=== PATIENT | male | born 1935 | race Hispanic/Latino ===

== ENCOUNTER 2018-04-16 12:43 | Inpatient (IN) | payer MEDICARE, OTHER ==
--- NOTE | 2018-04-16 13:11 | ED PDOC ---
Arrival/HPI - General Chief Complaint: Weakness/Neurological Deficit Time Seen by Provider: 04/16/18 12:47 Historian: Patient, Family (sone) - History of Present Illness Narrative History of Present Illness (Text): 04/16/18 13:11 An 83 year old male, whose past medical history includes CABG, back surgery, right hip replacement, shoulder surgery, and atrial fibrillation on coumadin, presents to the emergency department, accompanied and translated by son, sent in by Dr. Gunter for evaluation of generalized weakness and difficulty ambulating progressive over the past 3 weeks. Patient reports right arm pain and chronic left knee pain (w out rash or increased warmth to knee). Patient's son reports patient had and fall yesterday where he felt lightheaded and fell on his head. Patient was transported to [facility] where he had a CT scan and chest xray that was negative and his ekg and blood test results were cleared. Patient was discharged but over night and earlier this morning, the patient family noted patient had difficulty ambulating and was overall significantly weak. Patient's son states Dr. Gunter made a house call and saw patient at home advising him to go to ER for further evaluation. Patient denies any fever, shortness of breath, chest pain, back pain, neck pain, headache, dizziness, or any other complaints. PMD: Patrick Carpio 04/16/18 15:10 Time/Duration: 24 hours (yesterday) Symptom Onset: Gradual Symptom Course: Unchanged Activities at Onset: Light Context: Home Past Medical History - Provider Review Nursing Documentation Reviewed: Yes - Cardiac Hx Hypertension: Yes - Psychiatric Hx Substance Use: No - Surgical History Hx Open Heart Surgery: Yes - Anesthesia Hx Anesthesia: Yes Hx Anesthesia Reactions: No Hx Malignant Hyperthermia: No Family/Social History - Physician Review Nursing Documentation Reviewed: Yes Family/Social History: No Known Family HX Smoking Status: Never Smoked Hx Alcohol Use: No Hx Substance Use: No Allergies/Home Meds Allergies/Adverse Reactions: Allergies No Known Allergies Allergy (Verified 04/16/18 20:18) Home Medications: Home Meds Medication Instructions Recorded Confirmed Acetaminophen with Codeine 1 tab PO Q8 PRN 04/16/18 04/16/18 [Tylenol with Codeine #3 Tablet] Atorvastatin [Lipitor] 40 mg PO DAILY 04/16/18 04/16/18 Furosemide [Lasix] 40 mg PO DAILY 04/16/18 04/16/18 Levothyroxine [Synthroid] 25 mcg PO DAILY 04/16/18 04/16/18 Lorazepam [Ativan] 1 mg PO BID 04/16/18 04/16/18 Losartan/Hydrochlorothiazide 1 tab PO DAILY 04/16/18 04/16/18 [Losartan-Hctz 100-25 mg Tab] Metoprolol Tartrate [Lopressor] 25 mg PO BID 04/16/18 04/16/18 NIFEdipine ER [Procardia XL] 90 mg PO DAILY 04/16/18 04/16/18 Omeprazole 40 mg PO DAILY 04/16/18 04/16/18 Warfarin [Coumadin] 4 mg PO DAILY 04/16/18 04/16/18 traMADol [Ultram] 50 mg PO Q6 PRN 04/16/18 04/16/18 Review of Systems - Physician Review All systems were reviewed & negative as marked: Yes - Review of Systems Constitutional: absent: Fevers Eyes: absent: Vision Changes ENT: absent: Hearing Changes Respiratory: absent: SOB Cardiovascular: absent: Chest Pain Gastrointestinal: absent: Abdominal Pain Musculoskeletal: Other (right arm pain and left knee pain). absent: Back Pain, Neck Pain Skin: absent: Rash Neurological: Other (generalized weakness, difficulty ambulating). absent: Headache, Dizziness Endocrine: absent: Diaphoresis Physical Exam Vital Signs Reviewed: Yes Vital Signs Temp Pulse Resp BP Pulse Ox 04/16/18 12:44 98.7 F 96 H 18 135/68 96 Temperature: Afebrile Blood Pressure: Normal Pulse: Regular Respiratory Rate: Normal Appearance: Positive for: Non-Toxic - Systems Exam Head: Present: Atraumatic, Normocephalic, Other (2 sutures to forehead, 2.5cm lac; bruising under right eye, no entrapment, vision fully intact. no septal he matoma) Pupils: Present: PERRL Extroacular Muscles: Present: EOMI Conjunctiva: Present: Normal Mouth: Present: Dry Respiratory/Chest: Present: Clear to Auscultation, Good Air Exchange. No: Respiratory Distress, Accessory Muscle Use Cardiovascular: Present: Normal S1, S2, Irregular Rhythm. No: Murmurs Abdomen: No: Tenderness, Distention, Peritoneal Signs Back: Present: Normal Inspection Upper Extremity: Present: Other (4 out of 5 strength of bilateral upper extremities) Lower Extremity: Present: Other (3 out of 5 strength of bilateral lower ex tremities) Neurological: Present: GCS=15, CN II-XII Intact, Speech Normal Skin: Present: Other (CABBG scar noted) Psychiatric: Present: Alert, Oriented x 3, Normal Insight, Normal Concentration Medical Decision Making ED Course and Treatment: 04/16/18 13:13 Impression: 83 year old male presenting to the emergency room sent in by Dr. Gunter for evaluation of generalized weakness and difficulty ambulating. Pt had a fall yesterday on coumadin and had a CTH and chest which were both unremarkable. Pt has had R arm pain prior to Fall, but full rom in all extremities, with all fully n/v intact. 3/5 strength b/l LE and 4/5 strength b/l UE. No snuffbox tenderness Plan: -- Type and screen -- Head CT without contrast -- EKG -- Labs -- CBC -- COAGs -- Chest X-ray -- X-ray of right elbow -- X-ray of right shoulder -- X-ray of right wrist -- Urinalysis -- Reassess and disposition Prior Visits: Notes and results from previous visits were reviewed. Progress Notes: 04/16/18 13:[address] Gunter who accepts patient's admission to his care. 04/16/18 14:36 Patient symptoms started 24 hours prior and patient is already on coumadin. No indication of code stroke at this time given diffuse weakness and no neurological or focal deficits. 04/16/18 14:49 Dr. Kat bedside, to follow up w/ pendings labs and imaging. To admit to his service. Pt in NAD, agreeable to plan - RAD Interpretation Narrative RAD Interpretations (Text): Procedure: CT HEAD WITHOUT CONTRAST. Dictator : Pj Chavez MD Impression: No acute intracranial hemorrhage. Prominent subarachnoid spaces in the frontoparietal regions possibly due to cortical volume loss however developing subdural hygromas cannot be excluded. There is any clinical concern, consider repeat CT scan in 12 hrs. \ Mild diffuse chronic white matter ischemic changes as above.. 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 Questionable of few tiny infarcts left basal ganglia. Note that the possibility of a small hyperacute infarct cannot excluded. Moderate central volume loss with disproportionate enlargement of the ventricles compared the sulci. There is also asymmetry of the lateral ventricles right larger than left,, part of which could is secondary to ex vacuo dilatation due to aforementioned basal ganglia shah radiata infarcts and probably some component of anatomic variation 04/16/18 16:23 Procedure: Chest X-ray Dictator: Pj Chavez MD Impression: Poor inspiration with low lung volumes, crowded bronchovascular markings and bibasilar atelectasis left greater than right.. 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 If symptoms persist or occult fracture suspected clinically consider repeat radiographs in 7-10 days as most fractures should become radiographically evident in this timeframe. Crayon Grader: Radiologist - EKG Interpretation EKG Interpretation (Text): 04/16/18 14:55 EKG: Ordered, reviewed, and independently interpreted the EKG. Rate : 85 BPM Rhythm : Atrial fibrillation Interpretation : No stemi. Interpreted by ED Physician: Yes - Scribe Statement The provider has reviewed the documentation as recorded by the Domitila Ramos All medical record entries made by the Lizzyibe were at my direction and personally dictated by me. I have reviewed the chart and agree that the record accurately reflects my personal performance of the history, physical exam, medical decision making, and the department course for this patient. I have also personally directed, reviewed, and agree with the discharge instructions and disposition. Disposition/Present on Arrival - Present on Arrival Any Indicators Present on Arrival: No History of DVT/PE: No History of Uncontrolled Diabetes: No Urinary Catheter: No History of Decub. Ulcer: No History Surgical Site Infection Following: None - Disposition Have Diagnosis and Disposition been Completed?: Yes Diagnosis: Weakness, Fall Disposition Time: 14:49 Condition: GOOD
[2018-04-16 13:44] LABS: BASO # 0.01 K/mm3 (0.0-2.0); BASO % 0.1 % (0.0-3.0); EOS % 0.1 % (1.5-5.0); HEMOGLOBIN 13.5 g/dL (14.0-18.0); LYMPH % 9.7 % (22.0-35.0); MEAN CELL VOLUME 89.1 fl (80.0-105.0); MEAN CORPUSCULAR HEMOGLOBIN 30.5 pg (25.0-35.0); MEAN CORPUSCULAR HGB CONC 34.3 g/dl (31.0-37.0); MEAN PLATELET VOLUME 9.8 fl (7.0-11.0); MONO # 1.3 (0.1-0.6); MONO % 13.1 % (1.0-6.0); RBC 4.42 10^6/uL (3.5-6.1); RED CELL DISTRIBUTION WIDTH 14.6 % (11.5-14.5); WHITE BLOOD COUNT 9.9 10^3/uL (4.5-11.0)
[2018-04-16 13:51] LABS: INR 3.5; PROTHROMBIN TIME 39.5 SECONDS (9.4-12.5)
[2018-04-16 14:03] LABS: TROPONIN I 0.03 ng/mL
[2018-04-16 14:25] LABS: ALB/GLOB RATIO 1.1 (1.1-1.8); ALBUMIN 3.9 g/dL (3.0-4.8); ALT/SGPT 11 U/L (7-56); AST/SGOT 28 U/L (17-59); BLOOD UREA NITROGEN 18 mg/dL (7-21); CALCIUM 9.2 mg/dL (8.4-10.5); GFR NON-AFRICAN AMERICAN > 60
--- NOTE | 2018-04-16 14:25 | CT ---
Date of service: 04/16/2018 PROCEDURE: CT HEAD WITHOUT CONTRAST. HISTORY: Status post fall yesterday on coumadin COMPARISON: None available.. TECHNIQUE: Axial computed tomography images were obtained through the head/brain without intravenous contrast. Radiation dose: Total exam DLP = 1125.03 mGy-cm. This CT exam was performed using one or more of the following dose reduction techniques: Automated exposure control, adjustment of the mA and/or kV according to patient size, and/or use of iterative reconstruction technique. FINDINGS: HEMORRHAGE: No acute parenchymal, subarachnoid nor extra-axial hemorrhage. BRAIN: There is mildly prominent bilateral frontal subarachnoid spaces part of which is likely due to cortical atrophy however possibility of developing subdural hygromas cannot be excluded. Clinical correlation recommended there is any clinical concern, consider followup the CT scan in 12 hr to assess for developing subdural hygromas. Mild diffuse and confluent chronic periventricular white matter ischemic changes seen extending peripherally into the deep and to a lesser degree subcortical white matter both cerebral hemispheres.. 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 Questionable of few tiny infarcts left basal ganglia. Note that the possibility of a small hyperacute infarct cannot excluded. Moderate central volume loss with disproportionate enlargement of the ventricles compared the sulci. There is also asymmetry of the lateral ventricles right larger than left,, part of which could is secondary to ex vacuo dilatation due to aforementioned basal ganglia shah radiata infarcts and probably some component of anatomic variation Mild vascular calcifications both carotid siphons. VENTRICLES: No obstructive however as mentioned above, there is asymmetric appearance of the lateral ventricles right larger than left. CALVARIUM: No acute calvarial fractures. Moderate right frontotemporal and parietal scalp contusion/soft tissue swelling extending from the supraorbital region to the vertex. Questionable small scalp lipoma left anterior frontoparietal region near vertex. PARANASAL SINUSES: Mild mucosal thickening seen within the ethmoid air complex extending superiorly into the frontal sinus. MASTOID AIR CELLS: Unremarkable as visualized. No inflammatory changes.. Cerumen is present within the right and to a much lesser degree left external auditory canals. OTHER FINDINGS: Changes of bilateral cataract surgery noted. IMPRESSION: No acute intracranial hemorrhage. Prominent subarachnoid spaces in the frontoparietal regions possibly due to cortical volume loss however developing subdural hygromas cannot be excluded. There is any clinical concern, consider repeat CT scan in 12 hrs. Mild diffuse chronic white matter ischemic changes as above.. 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 Questionable of few tiny infarcts left basal ganglia. Note that the possibility of a small hyperacute infarct cannot excluded. Moderate central volume loss with disproportionate enlargement of the ventricles compared the sulci. There is also asymmetry of the lateral ventricles right larger than left,, part of which could is secondary to ex vacuo dilatation due to aforementioned basal ganglia shah radiata infarcts and probably some component of anatomic variation
[2018-04-16] MEDS ORDERED: POLYETHYLENE GLYCOL 3350 17 GM/Dose PACKET PO STA (14:36)
--- NOTE | 2018-04-16 15:32 | RAD ---
Date of service: 04/16/2018 PROCEDURE: Radiographs of the Right Shoulder HISTORY: Right shoulder pain s/p fall COMPARISON: No prior. FINDINGS: BONES: Normal. No fracture. 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 SOFT TISSUES: Normal. OTHER FINDINGS: None. 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
--- NOTE | 2018-04-16 15:43 | RAD ---
Date of service: 04/16/2018 PROCEDURE: Right Wrist Radiographs. HISTORY: Right wrist pain s/p fall COMPARISON: None. FINDINGS: BONES: No definitive radiographic evidence of acute displaced fracture.. The osseous structures intact. JOINTS: No dislocation. SOFT TISSUES: Normal. OTHER FINDINGS: None. IMPRESSION: No evidence of acute displaced fracture nor dislocation. If symptoms persist or occult fracture suspected clinically consider repeat radiographs in 7-10 days as most fractures should become radiographically evident in this timeframe.
--- NOTE | 2018-04-16 15:45 | RAD ---
Date of service: 04/16/2018 HISTORY: weak COMPARISON: No prior. TECHNIQUE: Poor inspiration with FINDINGS: LUNGS: Poor inspiration with low lung volumes, crowded bronchovascular markings and bibasilar atelectasis left greater than right.. There may be a small calcified granuloma right lung apex overlying the right anterior 1st rib. PLEURA: No significant pleural effusion identified. No pneumothorax apparent. CARDIOVASCULAR: Heart appears enlarged.. Sternotomy wires and CABG clips again noted mild or aortic atherosclerotic calcification present. OSSEOUS STRUCTURES: No significant abnormalities. VISUALIZED UPPER ABDOMEN: Normal. OTHER FINDINGS: None. IMPRESSION: Poor inspiration with low lung volumes, crowded bronchovascular markings and bibasilar atelectasis left greater than right..
--- NOTE | 2018-04-16 16:25 | RAD ---
Date of service: 04/16/2018 PROCEDURE: Radiographs of the right elbow. HISTORY: fall COMPARISON: No prior. FINDINGS: This examination is limited due to patient positioning. BONES: No definitive radiographic evidence of acute displaced fracture nor dislocation. There appear to be heterotopic bone and possibly some enthesophyte changes. Mild dorsal soft tissue swelling. If symptoms persist or occult fracture suspected clinically recommend followup radiographs in 7-10 days as most fractures should radiographically evident in this timeframe. Alternately, consider followup CT scan which is much more sensitive. JOINTS: Mild degenerative osteoarthritis felt to present. No definitive evidence SOFT TISSUES: As above. JOINT EFFUSION: None. OTHER FINDINGS: None. IMPRESSION: No definitive radiographic evidence of acute displaced fracture nor dislocation. There appear to be heterotopic bone and possibly some enthesophyte changes. Mild dorsal soft tissue swelling. If symptoms persist or occult fracture suspected clinically recommend followup radiographs in 7-10 days as most fractures should radiographically evident in this timeframe. Alternately, consider followup CT scan which is much more sensitive.
[2018-04-16 17:59] LABS: PH,URINE 6.5 (4.7-8.0); URINE APPEARANCE CLEAR (CLEAR); URINE BILIRUBIN NEGATIVE (NEGATIVE); URINE BLOOD TRACE-INTACT (NEGATIVE); URINE COLOR YELLOW (YELLOW); URINE GLUCOSE (UA) NEGATIVE (NEGATIVE); URINE LEUKOCYTE ESTERASE NEGATIVE Leu/uL (NEGATIVE); URINE PROTEIN 30 mg/dL (<30 mg/dL)
[2018-04-16 18:05] LABS: URINE WBC 0 - 2 /hpf (0-6)
[2018-04-16 18:06] LABS: URINE AMORPHOUS SEDIMENT FEW /hpf; URINE BACTERIA MOD /hpf
--- NOTE | 2018-04-16 20:13 | CARD ---
APPROVED REPORT Date of service: 04/16/2018 EKG Measurement Heart [id number] <Conclusion> Atrial fibrillation with premature ventricular or aberrantly conducted complexes Low voltage QRS Nonspecific ST and T wave abnormality, probably digitalis effect Abnormal ECG
[2018-04-16 21:57] VITALS: BMI 31.9
[2018-04-16] MEDS ORDERED: Influenza Vaccine 60 mcg/0.5 mL SYR (4YR UP) IM ONE (21:57)
[2018-04-16] MEDS ORDERED: Pneumococcal 23-Valent Vaccine IM ONE (21:57)
[2018-04-17] MEDS ORDERED: [UNRECOGNIZED DRUG - OTHER] PO PRN (09:34)
[2018-04-17] MEDS ORDERED: Pantoprazole 40 mg EC Tab PO ONE (09:45)
[2018-04-17] MEDS ORDERED: Non Formulary Medication (Losartan/Hydrochlorothiazide [Losartan-Hctz 100-25 Mg Tab] 1 TAB PO SCH (10:00)
--- NOTE | 2018-04-17 12:13 | HP ---
HISTORY OF PRESENT ILLNESS: The patient is an 83-year-old male who was admitted with overall weakness. I had planned to see the patient in a house call. However, 2 days before the visit, the patient fell at home lacerating his right scalp. He was brought to the [facility] emergency room where two sutures were placed in the scalp. Apparently, CAT scan of the head was negative at that time and the patient was discharged to home. When seen in a house call, the patient was very weak. He was unable to get out of bed. He was unable to ambulate to the bathroom. He is cared for by his elderly , a son had arrived from [place] the day before to assist with caring for the patient. After my evaluation at the house call, I suggested hospitalization. John was called. The patient was brought to the emergency room and admitted. PAST MEDICAL HISTORY: Positive for hypertension, coronary artery disease, hypothyroidism, atrial fibrillation, osteoarthritis. The patient usually walks with a cane. SOCIAL HISTORY: He is a nonsmoker, never did smoke; nonalcoholic drinker. ALLERGIES: HAS NO KNOWN MEDICAL ALLERGIES. MEDICATIONS: At the time of admission medications include; Tylenol with Codeine as needed which is rarely used, Lipitor 40 mg once a day, Lasix 40 mg once a day, Synthroid 25 mcg once a day, Ativan 1 mg twice a day, losartan hydrochlorothiazide 100/25 every. day, metoprolol tartrate 25 mg twice a day, omeprazole 40 mg daily, warfarin 4 mg daily, tramadol 50 mg every 6 hours. The patient had been on the Procardia XL 90 mg. However, this had been discontinued approximately 1 month ago. PHYSICAL EXAMINATION: HEENT: The patient has a laceration of the right scalp on the frontoparietal area, two sutures are in place. There is ecchymoses and swelling in the area. The patient also has ecchymoses around the right orbit. NECK: Supple with no lymphadenopathy. No goiter. LUNGS: Clear to auscultation and percussion. HEART: Irregularly irregular. No murmurs are appreciated. ABDOMEN: Soft and nontender. EXTREMITIES: Free of cyanosis, clubbing, or edema. There is some tenderness in the right shoulder, more exquisite tenderness in the right elbow on palpation and on extension of the elbow. Also some tenderness in the right wrist on palpation. NEUROLOGIC: The patient is awake, alert, and oriented with no focal neurological signs. LABORATORY STUDIES: Revealed white blood cell count to be 9.8, hemoglobin and hematocrit are 13.5 and 39.4 respectively, platelet count is 197. His PT/INR is 3.5 which is slightly higher than we would like it to be. Sodium is 139, potassium 2.8, BUN is 18, creatinine 1.0, glucose is 134. Liver enzymes are normal. Troponin is 0.03. TSH is normal at 2.0. EKG showed atrial fibrillation with PVCs. Chest x-ray shows bilateral atelectasis. The x-ray of the right shoulder, elbow, and wrist are all negative for fracture. CAT scan of the head suggests a possible subdural hygroma in the frontoparietal area and followup is suggested within 12 hours. IMPRESSION AND PLAN: The patient is admitted with a diagnosis of generalized weakness, status post fall at home, head trauma, trauma to the right upper extremity, hypokalemia. The patient will be followed closely. Osorio Gunter MD MTDD
[2018-04-17] MEDS: Levothyroxine 25 MCG TAB PO SCH (12:23)
[2018-04-17] MEDS: Potassium Chloride 20 mEq ER Tab PO SCH ×2 (12:25→17:05)
--- NOTE | 2018-04-17 13:54 | PN ---
DATE: 04/17/2018 SUBJECTIVE: The patient is an 83-year-old male with a history of hypertension, coronary artery disease, hypothyroidism, atrial fibrillation, who was admitted yesterday with weakness after suffering a fall at home. Laceration of the forehead had been sutured at [facility]. When the patient was discharged from their emergency room, at home, he was still increasingly weak, unable to get out of bed and unable to complete his activities of daily living; therefore, he presented to the [facility] where he is admitted. When seen today, the patient seems to be in good spirits. He slept well last night. He voices no complaints. OBJECTIVE: His physical exam is essentially unchanged from admission. His blood pressure is 120/66 today, heart rate is 84 and he is afebrile. ASSESSMENT AND PLAN: We will continue to follow his prothrombin time, which was high normal on admission at 3.5 yesterday. We will ask for MRI of the head to be done to reevaluate a possible subdural hygroma in the frontoparietal region seen on yesterday's CAT scan. Potassium is to be replaced as it was low yesterday at 2.8. We will continue to follow the patient closely. Osorio Gunter MD
[2018-04-18 08:00] LABS: BASO # 0.01 K/mm3 (0.0-2.0); BASO % 0.1 % (0.0-3.0); HEMOGLOBIN 12.9 g/dL (14.0-18.0); LYMPH # 0.9 (1.2-3.4); LYMPH % 7.7 % (22.0-35.0); MEAN CORPUSCULAR HEMOGLOBIN 30.2 pg (25.0-35.0); MEAN CORPUSCULAR HGB CONC 33.9 g/dl (31.0-37.0); MEAN PLATELET VOLUME 10.1 fl (7.0-11.0); MONO # 1.6 (0.1-0.6); RBC 4.27 10^6/uL (3.5-6.1); RED CELL DISTRIBUTION WIDTH 14.4 % (11.5-14.5); WHITE BLOOD COUNT 11.3 10^3/uL (4.5-11.0)
[2018-04-18 08:40] LABS: FREE T4 1.45 ng/dL (0.78-2.19)
[2018-04-18 08:52] LABS: ALBUMIN 3.4 g/dL (3.0-4.8); ALT/SGPT 9 U/L (7-56); AST/SGOT 29 U/L (17-59); BLOOD UREA NITROGEN 15 mg/dL (7-21); CALCIUM 8.7 mg/dL (8.4-10.5); GFR NON-AFRICAN AMERICAN > 60
[2018-04-18] MEDS: Potassium Chloride 20 mEq ER Tab PO SCH ×2 (12:10→18:42)
[2018-04-18] MEDS: Levothyroxine 25 MCG TAB PO SCH (12:11)
[2018-04-18] MEDS: Pantoprazole 40 mg EC Tab PO SCH (12:12)
--- NOTE | 2018-04-18 12:19 | CT ---
Date of service: 04/18/2018 PROCEDURE: CT HEAD WITHOUT CONTRAST. HISTORY: Routine COMPARISON: Comparison made with the CT scan brain 04/16/2018. TECHNIQUE: Axial computed tomography images were obtained through the head/brain without intravenous contrast. Radiation dose: Total exam DLP = 935.24 mGy-cm. This CT exam was performed using one or more of the following dose reduction techniques: Automated exposure control, adjustment of the mA and/or kV according to patient size, and/or use of iterative reconstruction technique. FINDINGS: HEMORRHAGE: No intracranial hemorrhage. BRAIN: Persistent stable appearing mildly enlarged bilateral frontoparietal subarachnoid spaces likely due to cortical atrophic changes.. Mild diffuse and confluent chronic periventricular white matter ischemic changes seen extending peripherally into the deep and to a lesser degree subcortical white matter both cerebral hemispheres.. 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 Questionable of few tiny infarcts left basal ganglia. Note that the possibility of a small hyperacute infarct cannot excluded. Moderate central volume loss with disproportionate enlargement of the ventricles compared the sulci. There is also asymmetry of the lateral ventricles right larger than left,, part of which could is secondary to ex vacuo dilatation due to aforementioned basal ganglia shah radiata infarcts and probably some component of anatomic variation Mild vascular calcifications both carotid siphons. VENTRICLES: Unremarkable. No hydrocephalus. CALVARIUM: No acute calvarial fractures. Mild-moderate right supraorbital and mid frontal scalp contusional changes.. Questionable small right frontal scalp lipoma near vertex six PARANASAL SINUSES: Unremarkable as visualized. No significant inflammatory changes. MASTOID AIR CELLS: Unremarkable as visualized. No inflammatory changes. OTHER FINDINGS: Changes of bilateral cataract surgery again noted. IMPRESSION: Persistent stable appearing mildly enlarged bilateral frontoparietal subarachnoid spaces likely due to cortical atrophic changes.. Mild diffuse and confluent chronic periventricular white matter ischemic changes seen extending peripherally into the deep and to a lesser degree subcortical white matter both cerebral hemispheres.. 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 Questionable of few tiny infarcts left basal ganglia. Note that the possibility of a small hyperacute infarct cannot excluded. Moderate central volume loss with disproportionate enlargement of the ventricles compared the sulci. There is also asymmetry of the lateral ventricles right larger than left,, part of which could is secondary to ex vacuo dilatation due to aforementioned basal ganglia Mild moderate right supraorbital and frontal scalp contusional changes. The the
--- NOTE | 2018-04-18 13:14 | PN ---
DATE: 04/18/2018 DAILY PROGRESS NOTE SUBJECTIVE: The patient is an 83-year-old male who fell at home and suffered a laceration of the right forehead. This was treated and sutured in [facility] and the patient was discharged back to home. However, he was unable to get out of bed. He was weak. He was unable to complete any of activities of daily living when the patient was seen in a house call, I recommended hospitalization to which the patient, his and his son from [place] agreed. The patient is known to have a history of hypertension, coronary artery disease, hypothyroidism and atrial fibrillation. When seen today, the patient is lying in bed. He is awake, alert and oriented. He is feeling well. He did however complain of right knee pain that came on yesterday, was rather intense. PHYSICAL EXAMINATION GENERAL: On physical exam he is awake, alert and oriented. LUNGS: Clear. HEART: Regular. ABDOMEN: Soft and nontender. EXTREMITIES: There is tenderness on palpation over the right knee. There is a very mild abrasion on the knee, probably suffered in initial fall a few days ago. VITAL SIGNS: Blood pressure is 131/75, heart rate is 110 and he is afebrile. LABORATORY DATA: Morning laboratories reveal the white blood cells to be 11.3, hemoglobin and hematocrit are 12.9 and 38.0 with platelet count is 206. His potassium is depressed today at 2.7, blood urea nitrogen is 15, creatinine is 0.9. IMPRESSION AND PLAN: I will be asking Dr. Osorio Zuleta, the orthopedist to evaluate the patient's right knee. I will be getting x-rays of the knee and patella. On admission, the patient had a possible subdural hygroma developing in the parietofrontal area. It was suggested this be followup so the patient is waiting for an MRI without contrast to better evaluate this possible hygroma. We are holding the patient's Lasix because of his depressed potassium and potassium supplements have been ordered. The patient will be reevaluated in the morning. Osorio Gunter MD
--- NOTE | 2018-04-18 13:31 | RAD ---
Date of service: 04/18/2018 PROCEDURE: Right Knee Radiographs. HISTORY: Pain and swelling COMPARISON: None. FINDINGS: BONES: There is significant JOINTS: Significant medial joint space narrowing with endplate eburnation and prominent marginal osteophyte arising from the medial tibial plateau. Small marginal lateral osteophyte formation. Small posterior patellar osteophytes and small anterior superior patella enthesophyte. JOINT EFFUSION: Medium-sized suprapatellar joint effusion. OTHER FINDINGS: Metallic vascular clips seen in the medial soft tissues; rule out prior saphenous vein harvest. IMPRESSION: No acute fractures. 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 Medium size suprapatellar joint effusion.
[2018-04-18] MEDS ORDERED: Sodium Chloride 0.9% 500 ML IV STA (22:43)
--- NOTE | 2018-04-18 22:44 | CP.PCM.PN ---
Subjective - Date & Time of Evaluation Date of Evaluation: 04/18/18 Time of Evaluation: 22:30 - Subjective Subjective: Called to bedside to evaluate pt for fever. Pt currently admitted for generalized weakness, s/p fall at home, head trauma, trauma to R upper extremity. Observed resting comfortably with no acute complaints. Heart sounds normal s1/s2, no m/r/g. Lung sounds CTA b/l, no wheezes, rales, or rhonchi. Abd soft, NTND, BS normal x4. Sepsis work-up ordered. PMD Dr. uGnter notified. Pending CBC, CMP, procal, U/a, urine cx, blood cx, CXR, EKG, VBG. Given Tylenol x1. Will continue to follow overnight. Objective - Vital Signs/Intake and Output Vital Signs (last 24 hours): Temp Pulse Resp BP Pulse Ox 99.8 F H 87 20 114/54 L 94 L 04/18/18 18:56 04/18/18 18:42 04/18/18 14:00 04/18/18 18:42 04/18/18 14:00 Intake and Output: 04/18/18 04/19/18 18:59 06:59 Intake Total 480 Balance 480 - Medications Medications: Current Medications Acetaminophen (Tylenol 325mg Tab) 325 mg PO Q8H PRN PRN Reason: Pain, severe (8-10) Last Admin: 04/18/18 18:56 Dose: 325 mg Acetaminophen (Tylenol 325 Mg Supp) 325 mg RC STAT STA Stop: 04/18/18 22:42 Atorvastatin Calcium (Lipitor) 40 mg PO DAILY [facility] Last Admin: 04/18/18 12:19 Dose: 40 mg Codeine Sulfate (Codeine) 30 mg PO Q8H PRN PRN Reason: Pain, severe (8-10) Furosemide (Lasix) 40 mg PO DAILY [facility] Last Admin: 04/17/18 12:26 Dose: 40 mg Hydrochlorothiazide (Hydrodiuril) 25 mg PO DAILY [facility] Last Admin: 04/18/18 12:08 Dose: 25 mg Levothyroxine Sodium (Synthroid) 25 mcg PO DAILY [facility] Last Admin: 04/18/18 12:11 Dose: 25 mcg Lorazepam (Ativan) 1 mg PO BID [facility]; Protocol Last Admin: 04/18/18 18:41 Dose: 1 mg Losartan Potassium (Cozaar) 100 mg PO DAILY [facility] Last Admin: 04/18/18 14:59 Dose: 100 mg Metoprolol Tartrate (Lopressor) 25 mg PO BID [facility] Last Admin: 04/18/18 18:42 Dose: 25 mg Pantoprazole Sodium (Protonix Ec Tab) 40 mg PO ACB [facility] Last Admin: 04/18/18 12:12 Dose: 40 mg Potassium Chloride (K-Dur 20 Meq Er Tab) 20 meq PO BID [facility] Last Admin: 04/18/18 18:42 Dose: 20 meq Tramadol HCl (Ultram) 50 mg PO Q6 PRN PRN Reason: Pain, moderate (4-7) Last Admin: 04/18/18 18:42 Dose: 50 mg - Labs Labs: 04/18/18 07:15 04/18/18 07:15 PT 39.5 SECONDS (9.4-12.5) H 04/16/18 13:30 INR 3.50 04/16/18 13:30 APTT 43.8 Seconds (26.9-38.3) H 04/17/18 09:56
[2018-04-18 23:16] LABS: BASO # 0.01 K/mm3 (0.0-2.0); BASO % 0.1 % (0.0-3.0); EOS % 0.1 % (1.5-5.0); LYMPH # 1.3 (1.2-3.4); LYMPH % 10.9 % (22.0-35.0); MEAN CELL VOLUME 89.1 fl (80.0-105.0); MEAN CORPUSCULAR HEMOGLOBIN 30.2 pg (25.0-35.0); MEAN CORPUSCULAR HGB CONC 33.9 g/dl (31.0-37.0); MEAN PLATELET VOLUME 9.6 fl (7.0-11.0); MONO # 1.5 (0.1-0.6); MONO % 12.6 % (1.0-6.0); RBC 4.3 10^6/uL (3.5-6.1); RED CELL DISTRIBUTION WIDTH 14.4 % (11.5-14.5); WHITE BLOOD COUNT 11.5 10^3/uL (4.5-11.0)
[2018-04-18 23:17] LABS: VENOUS BLOOD GAS BASE EXCESS 6.6 mmol/L (0.0-2.0); VENOUS BLOOD GAS PO2 240 mm/Hg (30-55)
[2018-04-18 23:55] LABS: ALBUMIN 3.4 g/dL (3.0-4.8); ALT/SGPT 14 U/L (7-56); AST/SGOT 20 U/L (17-59); BLOOD UREA NITROGEN 18 mg/dL (7-21); CALCIUM 8.9 mg/dL (8.4-10.5); GFR NON-AFRICAN AMERICAN > 60
[2018-04-19] MEDS: Potassium Chloride 40 mEq/30 ml LIQ UD PO SCH ×2 (00:21→03:43)
[2018-04-19 08:27] LABS: ARTERIAL BLOOD GAS HCO3 28.4 mmol/L (21-28); ARTERIAL BLOOD GAS O2 SAT 97.5 % (95-98); ARTERIAL BLOOD GAS PCO2 39 mm/Hg (35-45); ARTERIAL BLOOD GAS PH 7.47 (7.35-7.45); ARTERIAL BLOOD GAS TCO2 29.6 mmol.L (22-28)
[2018-04-19 08:59] LABS: PH,URINE 6.5 (4.7-8.0); URINE BILIRUBIN NEGATIVE (NEGATIVE); URINE BLOOD SMALL (NEGATIVE); URINE GLUCOSE (UA) NEGATIVE (NEGATIVE); URINE LEUKOCYTE ESTERASE NEGATIVE Leu/uL (NEGATIVE); URINE PROTEIN 30 mg/dL (<30 mg/dL)
[2018-04-19 09:01] LABS: URINE APPEARANCE CLEAR (CLEAR); URINE COLOR YELLOW (YELLOW)
[2018-04-19 09:12] LABS: URINE BACTERIA SMALL /hpf; URINE WBC 0 - 2 /hpf (0-6)
[2018-04-19] MEDS: Pantoprazole 40 mg EC Tab PO SCH (09:31)
[2018-04-19] MEDS: Potassium Chloride 20 mEq ER Tab PO SCH ×2 (09:31→18:06)
[2018-04-19] MEDS: Levothyroxine 25 MCG TAB PO SCH (09:31)
--- NOTE | 2018-04-19 10:18 | RAD ---
Date of service: 04/18/2018 HISTORY: code sepsis COMPARISON: 04/16/2018 FINDINGS: LUNGS: There is a minimal infiltrate at the left lung base. This is most likely atelectasis. This is unchanged PLEURA: No significant pleural effusion identified, no pneumothorax apparent. CARDIOVASCULAR: Aortic calcification Mild cardiomegaly no pulmonary vascular congestion. OSSEOUS STRUCTURES: Sternal wires VISUALIZED UPPER ABDOMEN: Normal. OTHER FINDINGS: None. IMPRESSION: Minimal infiltrate at the left lung base. Probable atelectasis.
--- NOTE | 2018-04-19 19:00 | CON ---
DATE: 04/19/2018 ORTHOPEDIC REPORT HISTORY OF PRESENT ILLNESS: This is an 83-year-old male in room 567, bed 2. Dr. Gunter is his physician and admit him to the ER, 04/16/2018. I am seeing him today for the first time on 04/19/2018 with a mild complaint of right knee pain and swelling and left shoulder mild discomfort. X-rays of the knee showed osteoarthritis, knee has an effusion and the right shoulder has signs and changes of rotator cuff tear and I called the son at [phone] and he said that he has been seeing an orthopedic doctor out of town and he has some platelet rich factor in the left and right knee and knows about the shoulder problem. He does have sizing of his rotator cuff tear on the right and advanced osteoarthritis on the right knee with effusion, but he does not want me to do any injecting as he does have a private physician and I do not want to interfere with the treatment that is presently going on with the patient and the private orthopedic doctor. So, I will leave well enough alone, I will just write for physical therapy to ambulation with a walker and to maintain the strength that he has at the quadriceps and calves, so he does not fall when he does walk, but he has an appointment with his privateortho dr when he goes back to the orthopedic doctor out of town and I do not want to interfere with the current treatment plan that the other physician has for his knee arthritis and rotator cuff tear to the shoulder. Osorio Zuleta DO MTDD
[2018-04-20 07:19] LABS: BASO # 0.02 K/mm3 (0.0-2.0); BASO % 0.2 % (0.0-3.0); EOS # 0.1 (0.0-0.7); EOS % 1.2 % (1.5-5.0); HEMOGLOBIN 12.6 g/dL (14.0-18.0); LYMPH # 1.2 (1.2-3.4); LYMPH % 11.5 % (22.0-35.0); MEAN CELL VOLUME 89.6 fl (80.0-105.0); MEAN CORPUSCULAR HEMOGLOBIN 29.9 pg (25.0-35.0); MEAN CORPUSCULAR HGB CONC 33.3 g/dl (31.0-37.0); MEAN PLATELET VOLUME 10.4 fl (7.0-11.0); MONO % 9.5 % (1.0-6.0); RBC 4.22 10^6/uL (3.5-6.1); RED CELL DISTRIBUTION WIDTH 14.6 % (11.5-14.5); WHITE BLOOD COUNT 10.6 10^3/uL (4.5-11.0)
[2018-04-20 08:14] LABS: ALB/GLOB RATIO 0.9 (1.1-1.8); ALBUMIN 3.2 g/dL (3.0-4.8); ALT/SGPT 24 U/L (7-56); AST/SGOT 44 U/L (17-59); BLOOD UREA NITROGEN 17 mg/dL (7-21); CALCIUM 8.6 mg/dL (8.4-10.5); GFR NON-AFRICAN AMERICAN > 60
[2018-04-20] MEDS: Potassium Chloride 20 mEq ER Tab PO SCH ×2 (10:00→18:44)
--- NOTE | 2018-04-20 10:52 | PN ---
DATE: 04/19/2018 SUBJECTIVE: The patient is an 83-year-old male who was seen in a house call and found to be extremely weak, unable to ambulate from his bedroom to his bathroom, unable to complete his activities of daily living; therefore, was suggested presentation to the emergency room and hospitalization. The patient had fallen the day before my house call and had received two sutures to a laceration in the right frontoparietal region. [facility]; however, as mentioned above, was unable to ambulate. He is cared for by his elderly . His son from [place] had come up to visit and assist with the patient, however. The patient had complained of right elbow and shoulder pain. These were x-rayed along with the right wrist and they were negative for fracture. When seen today, the patient was also complaining of knee pain. Consultation from Dr. Osorio Zuleta was requested as well as x-rays of the knee. The x-ray showed significant osteoarthritis and osteophytes rising from the medial tibial plateau. There were some lateral osteophyte formations. There is a medium-sized supra patellar joint effusion. No fracture was noted. PHYSICAL EXAMINATION: VITAL SIGNS: Stable. His physical exam was unchanged. ASSESSMENT AND PLAN: We will begin physical therapy after evaluation from Dr. Zuleta. Osorio Gunter MD
[2018-04-20] MEDS: Levothyroxine 25 MCG TAB PO SCH (10:58)
[2018-04-20] MEDS: Pantoprazole 40 mg EC Tab PO SCH (10:58)
--- NOTE | 2018-04-20 23:09 | PN ---
DATE: 04/20/2018 The patient was seen this Thursday on room 567, bed 2, admitted with several falls at home and generalized weakness. He remains in bed with his niece and at the bedside. His son returned to [place]. The patient has generalized weak, was having difficulty getting out of bed for evaluation with physical therapist. He is scheduled for additional physical therapy. He will probably need some acute rehab. Unfortunately because of his insurance, he is not eligible for our Transitional Care Unit. I spoke with case management and social security benefits interviewer there looking at [facility] or other or other places, they tell me that they have been in touch with the patient's son and he is in agreement. I went back into the room to explain to the patient's and niece about the insurance dilemma they have and they unfortunately must abide. Patrick Gunter MD
[2018-04-21] MEDS: Pantoprazole 40 mg EC Tab PO SCH (07:39)
[2018-04-21 08:16] VITALS: RESP 20
[2018-04-21] MEDS: Potassium Chloride 20 mEq ER Tab PO SCH ×2 (10:35→18:28)
[2018-04-21] MEDS: Levothyroxine 25 MCG TAB PO SCH (10:40)
[2018-04-22 08:31] VITALS: PULSE 78; TEMP 97.4; O2SAT 100
[2018-04-22] MEDS: Pantoprazole 40 mg EC Tab PO SCH (09:37)
[2018-04-22] MEDS: Levothyroxine 25 MCG TAB PO SCH (09:38)
[2018-04-22] MEDS: Potassium Chloride 20 mEq ER Tab PO SCH (09:38)
[2018-04-22 09:49] VITALS: BP 135/80
--- NOTE | 2018-04-23 01:34 | DS ---
HISTORY OF PRESENT ILLNESS: This is an 83-year-old man with severe arthritis and limited mobility who is known to Dr. Osorio Sauer. He was seen by him and admitted on 04/16/2018 for multiple falls at home, generalized weakness, laceration on the scalp, large hematoma. After his initial visit to the emergency room at [facility], he was taken home with sutures in place, but has been having difficulty ambulating, could not go to the bathroom, clearly could not be cared for by his elderly and son who arrives from [place]. So, ambulance was called. He was taken to the emergency room, reevaluated for his overall weakness altered state, strength, and mentation, and admitted. His past history is significant for hypertension, coronary artery disease, hypothyroidism, atrial fibrillation, and osteoarthritis. He was admitted to medical floor. Blood cultures and urine cultures were negative. So, even though his initial white count is elevated at 11.3. His antibiotics which had begun empirically were run and then discontinued. Coumadin was held because his INR was 3.5 and we started just today. Electrolytes were monitored and adjusted for low potassium as low as 2.7, but now corrected to 3.5. Physical therapy was attempted, but it was difficult to get the patient up and moving. It was obvious that more therapy was needed. Unfortunately for insurance purposes, he was not a candidate for admission to our transitional care unit, and so arrangements were made for a subacute rehab facility elsewhere. The patient's and niece were at bedside on the following days after their son went back to [place] and the patient was ready for transfer today to subacute rehab facility. Sutures remained in place . It will be taken out as today was only day #6, and we estimate 10 to 14 days for those sutures to be in place. FINAL DISCHARGE DIAGNOSES: 1. Multiple falls at home. 2. Closed head trauma. 3. Coumadin coagulopathy. 4. Generalized weakness. 5. Osteoarthritis. 6. Hypertension. 7. Atrial fibrillation. Patrick Gunter MD
== END 2018-04-22 16:00 | DRG 565 ==
LOC: ED 12:43 → ERH 14:50 → 5RNO 20:48
PROVIDERS: ADMIT Internal Medicine; ATTEND Internal Medicine
DX: M25.461 Effusion, right knee (principal); M17.11 Unilateral primary osteoarthritis, right knee; J98.11 Atelectasis; R53.1 Weakness; G89.29 Other chronic pain; I10 Essential (primary) hypertension; I48.91 Unspecified atrial fibrillation; M75.101 Unspecified rotator cuff tear or rupture of right shoulder, not specified as traumatic; M79.601 Pain in right arm; I25.10 Atherosclerotic heart disease of native coronary artery without angina pectoris; E03.9 Hypothyroidism, unspecified; R29.6 Repeated falls; R79.1 Abnormal coagulation profile; Z79.01 Long term (current) use of anticoagulants; Z91.81 History of falling; Z79.899 Other long term (current) drug therapy; Z95.1 Presence of aortocoronary bypass graft; Z79.890 Hormone replacement therapy; Z96.641 Presence of right artificial hip joint

== ENCOUNTER 2018-06-10 13:04 | Inpatient (IN) | payer MEDICARE, OTHER ==
--- NOTE | 2018-06-10 14:20 | ED PDOC ---
Arrival/HPI - General Chief Complaint: Weakness/Neurological Deficit Time Seen by Provider: 06/10/18 13:46 Historian: Patient, EMS - History of Present Illness Narrative History of Present Illness (Text): 06/10/18 14:19 83 year old male, whose past medical history back surgery, right hip replacement, shoulder surgery, and atrial fibrillation on coumadin, presents to the ED via EMS for medical evaluation. As per EMS, daughter noticed patient experiencing "transient blank stares" prompting her to call 911. Upon arrival to the ED, patient is able to answer questions appropriately but slowly. Patient expresses right leg pain but denies any other somatic complaints. Patient denies any headache, chest pain, abdominal pain or any shortness of breath. 06/10/18 15:31 Time/Duration: Prior to Arrival Symptom Onset: Gradual Symptom Course: Unchanged Activities at Onset: Light Context: Home Past Medical History - Provider Review Nursing Documentation Reviewed: Yes - Cardiac Hx Hypertension: Yes - Pulmonary Hx Respiratory Disorders: No - Neurological Hx Neurological Disorder: Yes HX Cerebrovascular Accident: Yes Hx Dizziness: Yes - HEENT Hx HEENT Disorder: Yes Hx Cataracts: Yes - Renal Hx Renal Disorder: No - Endocrine/Metabolic Hx Endocrine Disorders: No - Hematological/Oncological Hx Blood Disorders: No - Integumentary Hx Dermatological Disorder: Yes Other/Comment: 04-16-18 LARGE HEMATOMA,BRUISING TO TOP OF HEAD WITH 2 STITCHES FROM FALL. BILATERAL BELOW EYE BRUISED AREA. - Musculoskeletal/Rheumatological Hx Musculoskeletal Disorders: Yes Hx Falls: Yes (04-15-18) Hx Unsteady Gait: Yes - Gastrointestinal Hx Gastrointestinal Disorders: Yes (INCONTINENT) - Genitourinary/Gynecological Hx Genitourinary Disorders: Yes Hx Incontinence: Yes - Psychiatric Hx Psychophysiologic Disorder: Yes Hx Anxiety: Yes Hx Substance Use: No - Surgical History Hx Open Heart Surgery: Yes - Anesthesia Hx Anesthesia: Yes Hx Anesthesia Reactions: No Hx Malignant Hyperthermia: No Family/Social History - Physician Review Nursing Documentation Reviewed: Yes Family/Social History: Unknown Family HX Smoking Status: Unknown If Ever Smoked Hx Alcohol Use: No Hx Substance Use: No Allergies/Home Meds Allergies/Adverse Reactions: Allergies No Known Allergies Allergy (Verified 04/16/18 20:18) Home Medications: Home Meds Medication Instructions Recorded Confirmed Acetaminophen with Codeine 1 tab PO Q8 PRN 04/16/18 04/16/18 [Tylenol with Codeine #3 Tablet] Atorvastatin [Lipitor] 40 mg PO DAILY 04/16/18 04/16/18 Furosemide [Lasix] 40 mg PO DAILY 04/16/18 04/16/18 Levothyroxine [Synthroid] 25 mcg PO DAILY 04/16/18 04/16/18 Lorazepam [Ativan] 1 mg PO BID 04/16/18 04/16/18 Losartan/Hydrochlorothiazide 1 tab PO DAILY 04/16/18 04/16/18 [Losartan-Hctz 100-25 mg Tab] Metoprolol Tartrate [Lopressor] 25 mg PO BID 04/16/18 04/16/18 NIFEdipine ER [Procardia XL] 90 mg PO DAILY 04/16/18 04/16/18 Omeprazole 40 mg PO DAILY 04/16/18 04/16/18 Warfarin [Coumadin] 4 mg PO DAILY 04/16/18 04/16/18 traMADol [Ultram] 50 mg PO Q6 PRN 04/16/18 04/16/18 Review of Systems - Physician Review All systems were reviewed & negative as marked: Yes - Review of Systems Constitutional: absent: Fevers Respiratory: absent: SOB, Cough Cardiovascular: absent: Chest Pain Gastrointestinal: absent: Abdominal Pain Musculoskeletal: Other (Right leg pain) Neurological: absent: Headache, Dizziness Physical Exam - Physical Exam Narrative Physical Exam (Text): 06/10/18 14:26 Gen: VS reviewed, alert, well developed, well nourished, nontoxic, mild distress. ENT: normal pharynx. Eye: EOMI, PERRL. Neck: no JVD, supple, no adenopathy. CV: regular rate, irregularly irregular rhythm, no rubs, no murmur, no gallops, S1, S2, pulses equal and strong. Pulm: no distress, clear to auscultation, no wheeze, no rhonchi, breath sounds equal, no rales. Abd: soft, nontender, no guarding, no rebound, no rigidity, normal bowel sounds. Ext: no edema. Skin: good color, no rash, no cyanosis. Psych: responds appropriately to questions, normal affect. Neuro: oriented x 2, CN2-12 intact grossly, motor intact, sensation intact. dysarthric, words difficult to comprehend. Responds appropriately to questions. Vital Signs Reviewed: Yes Vital Signs Temp Pulse Resp BP Pulse Ox 06/10/18 13:26 98.7 F 86 18 88/57 L 95 Temperature: Afebrile Blood Pressure: Hypotensive Pulse: Regular Respiratory Rate: Normal Appearance: Positive for: Well-Appearing, Non-Toxic, Comfortable Pain Distress: Mild Mental Status: Positive for: other (Alert) Medical Decision Making ED Course and Treatment: 06/10/18 14:14 Impression: 83 year old male presents to the ED for medical evaluation. Plan: -- CT head -- EKG -- Labs -- Chest X-ray -- Urinalysis -- Reassess and disposition Prior Visits: Notes and results from previous visits were reviewed. Progress Notes: 06/10/18 15:32 patient is alone, family not in the ED with the patient to corroborate history. there is no phone number on file to reach family member (number called and it is disconnected). I have discussed the case with dr. dejuan gunter and state that the patient was discharged from the hospital to go to rehab, was discharged home, was doing ok, they were scheduled for an upcoming home visit. they received a phone call from daughter in law calling the office stating that the patient has been intermittently staring into space. the timing of any events tod ay are entirely unclear and for that the patient is not a candidate for thrombolysis as there is no definable therapeutic window. 06/10/18 17:[address] gunter. patient to be admitted for altered mentation. will get cultures rule otu sepsis, hold abx for now as there is no clear potential infection source with pending UA.consult to dr. steve. ddx including but not limited to seizure, rule out sepsis, possible cva in light of atrial fibrillation and subtherapeutic INR. - RAD Interpretation Radiology Orders: 06/10/18 14:14 CHEST PORTABLE [RAD] Stat 06/10/18 14:16 HEAD W/O CONTRAST [CT] Stat - EKG Interpretation EKG Interpretation (Text): 06/10/18 17:15 ekg my read: atrial fibrillation at 83 bpm, nml qrs, nml axis, low voltage, nonspecific t wave abn Interpreted by ED Physician: Yes - Scribe Statement The provider has reviewed the documentation as recorded by the Scribe Brigid Garcia. All medical record entries made by the Domitila were at my direction and personally dictated by me. I have reviewed the chart and agree that the record accurately reflects my personal performance of the history, physical exam, medical decision making, and the department course for this patient. I have also personally directed, reviewed, and agree with the discharge instructions and disposition. Disposition/Present on Arrival - Present on Arrival Any Indicators Present on Arrival: No History of DVT/PE: No History of Uncontrolled Diabetes: No Urinary Catheter: No History of Decub. Ulcer: No History Surgical Site Infection Following: None - Disposition Have Diagnosis and Disposition been Completed?: Yes Diagnosis: Altered mental state Disposition: HOSPITALIZED Disposition Time: 17:15 Patient Plan: Admission Patient Problems: Current Active Problems Problem Status Onset Altered mental state Acute Condition: GUARDED Referrals: Osorio Gunter MD [Primary Care Provider] - Follow up with primary Forms: [employer] [facility] (Slovak)
--- NOTE | 2018-06-10 14:54 | RAD ---
Date of service: 06/10/2018 HISTORY: chest pain COMPARISON: No prior. TECHNIQUE: 1 view obtained. FINDINGS: LUNGS: No active pulmonary disease. PLEURA: No significant pleural effusion identified, no pneumothorax apparent. CARDIOVASCULAR: No aortic atherosclerotic calcification present. Normal cardiac size. No congestive change. Sternotomy wires noted. OSSEOUS STRUCTURES: No significant abnormalities. VISUALIZED UPPER ABDOMEN: Normal. OTHER FINDINGS: None. IMPRESSION: No active disease.
[2018-06-10 15:28] LABS: BASO # 0.03 K/mm3 (0.0-2.0); BASO % 0.3 % (0.0-3.0); EOS # 0.3 (0.0-0.7); HEMOGLOBIN 12.9 g/dL (14.0-18.0); MEAN CELL VOLUME 90.5 fl (80.0-105.0); MEAN CORPUSCULAR HEMOGLOBIN 29.9 pg (25.0-35.0); MEAN CORPUSCULAR HGB CONC 33.1 g/dl (31.0-37.0); MEAN PLATELET VOLUME 9.5 fl (7.0-11.0); MONO # 0.9 (0.1-0.6); MONO % 9.6 % (1.0-6.0); RBC 4.31 10^6/uL (3.5-6.1); RED CELL DISTRIBUTION WIDTH 15.3 % (11.5-14.5); WHITE BLOOD COUNT 9.6 10^3/uL (4.5-11.0)
[2018-06-10] MEDS ORDERED: Sodium Chloride 0.9% 1,000 ML IV STA (15:36)
[2018-06-10 15:39] LABS: INR 1.49; PROTHROMBIN TIME 16.5 SECONDS (9.4-12.5)
[2018-06-10 15:40] LABS: ALB/GLOB RATIO 0.9 (1.1-1.8); ALBUMIN 3.1 g/dL (3.0-4.8); ALT/SGPT 14 U/L (7-56); AST/SGOT 18 U/L (17-59); BLOOD UREA NITROGEN 31 mg/dL (7-21); CALCIUM 8.8 mg/dL (8.4-10.5); GFR NON-AFRICAN AMERICAN > 60
--- NOTE | 2018-06-10 15:50 | CT ---
Date of service: 06/10/2018 PROCEDURE: CT HEAD WITHOUT CONTRAST. HISTORY: altered mentation COMPARISON: None available. TECHNIQUE: Axial computed tomography images were obtained through the head/brain without intravenous contrast. Radiation dose: Total exam DLP = 1063.77 mGy-cm. This CT exam was performed using one or more of the following dose reduction techniques: Automated exposure control, adjustment of the mA and/or kV according to patient size, and/or use of iterative reconstruction technique. FINDINGS: HEMORRHAGE: No intracranial hemorrhage. BRAIN: No mass effect or edema. Chronic microvascular changes in the basal ganglia and deep white matter. VENTRICLES: Unremarkable. No hydrocephalus. CALVARIUM: Unremarkable. PARANASAL SINUSES: Unremarkable as visualized. No significant inflammatory changes. MASTOID AIR CELLS: Unremarkable as visualized. No inflammatory changes. OTHER FINDINGS: None. IMPRESSION: No acute findings
[2018-06-10 15:52] LABS: TROPONIN I < 0.01 ng/mL
[2018-06-10 19:06] LABS: URINE APPEARANCE CLOUDY (CLEAR); URINE BILIRUBIN NEGATIVE (NEGATIVE); URINE BLOOD TRACE-INTACT (NEGATIVE); URINE COLOR YELLOW (YELLOW); URINE GLUCOSE (UA) NEGATIVE (NEGATIVE); URINE LEUKOCYTE ESTERASE LARGE Leu/uL (NEGATIVE); URINE PROTEIN TRACE mg/dL (<30 mg/dL); URINE UROBILINOGEN 0.2 E.U./dL (<1 E.U./dL)
[2018-06-10 19:14] LABS: URINE BACTERIA LARGE /hpf; URINE WBC TNTC /hpf (0-6)
[2018-06-10 19:25] LABS: BARBITURATES, UR NEGATIVE (NEGATIVE); BENZODIAZEPINES, UR POSITIVE (NEGATIVE); OPIATES, UR NEGATIVE (NEGATIVE); PHENCYCLIDINE, UR NEGATIVE (NEGATIVE)
[2018-06-10] MEDS ORDERED: cefTRIAXone 1 gm 1 GM/100 ML BAG IVPB STA (19:57)
[2018-06-11 00:24] VITALS: BMI 27.8
[2018-06-11] MEDS ORDERED: Metoprolol 1 mg/ml Inj IVP ONE (08:48)
--- NOTE | 2018-06-11 08:51 | CARD ---
APPROVED REPORT Date of service: 06/10/2018 EKG Measurement Heart [id number] <Conclusion> Atrial fibrillation Moderate Rate. Non Specific ST-T Changes.
[2018-06-11] MEDS ORDERED: Metoprolol 1 mg/ml Inj ONE (08:54)
[2018-06-11] MEDS ORDERED: Non Formulary Medication (Losartan/Hydrochlorothiazide [Losartan-Hctz 100-25 Mg Tab] 1 TAB PO SCH (10:00)
[2018-06-11] MEDS: Tmp-Smz 800 mg-160 mg DS Tab PO SCH ×2 (11:04→17:45)
[2018-06-11] MEDS: Levothyroxine 25 MCG TAB PO SCH (11:04)
[2018-06-11] MEDS: Pantoprazole 40 mg EC Tab PO SCH (11:05)
[2018-06-11] MEDS: NIFEdipine 90 mg ER Tab PO SCH (11:15)
[2018-06-11 11:28] LABS: INR 1.82; PROTHROMBIN TIME 20.6 SECONDS (9.4-12.5)
--- NOTE | 2018-06-11 15:16 | PN ---
DATE: 06/11/2018 SUBJECTIVE: The patient is an 83-year-old male with a history of multiple falls at home, osteoarthritis, hypertension, atrial fibrillation and coronary artery disease who was admitted to the [facility] on 06/10/2018 with altered mental status and urinary tract infection. When seen today, the patient is awake, alert, he recognized me, however, as per the nurse caring for the patient, he had been confused in the past. Easily falling asleep and not being aware of his surroundings. With me he did carry on a discussion in [place] he was able to describe how he was feeling and that his chief complaint was pain in the right knee. Review of the chart shows in April, during his last hospitalization with inability to walk, X-ray of the right knee showed try compartment degenerative osteoarthritis with a suprapatellar effusion. I will ask Dr. Zuleta, who saw him last hospitalization to reevaluate the patient and consider a possible injection to the knee for pain relief. Physical exam is otherwise unremarkable. We are awaiting culture results from his culture and sensitivity results for his urinary tract infection. 'I have empirically started the patient on Bactrim DS 1 tablet twice a day. Osorio Gunter MD MTDBandar
--- NOTE | 2018-06-11 15:52 | CP.PCM.PCO ---
Physician Communication Note - Physician Communication Note Physician Communication Note: mild delirium. avoid hypotensive episodes.Iv fluids/monitor electrolytes.
--- NOTE | 2018-06-11 21:08 | CON ---
DATE: 06/11/2018 HISTORY OF PRESENT ILLNESS: An 83-year-old male with a past medical history of right hip replacement, atrial fibrillation, on Coumadin and the patient was experiencing blank stares and brought him to hospital for further workup and the patient will follows simple command, but confused. PAST MEDICAL HISTORY: Hypertension, atrial fibrillation, dizziness, and CVA. ALLERGIES: NO KNOWN DRUG ALLERGY. HOME MEDICATIONS: The patient is on Synthroid, Lipitor, Lasix, hydrochlorothiazide, omeprazole, , and tramadol. REVIEW OF SYSTEMS: The patient confused and headache and dizziness. PHYSICAL EXAMINATION: VITAL SIGNS: Blood pressure 88/57. HEENT: Normocephalic and atraumatic. NEUROLOGICAL: Cranial nerves II through XII are tested. Pupils reactive. EOM intact. Visual field full. No facial asymmetry. Tongue midline. Motor examination; spontaneous movement of the extremities noted. IMPRESSION AND PLAN: The patient was recently discharged and now admitted with altered mental status and CAT scan of the head was negative and workup in progress. Continue present management. We will follow up. Forrest Carroll MD
--- NOTE | 2018-06-11 21:28 | HP ---
DATE OF EXAM: 06/11/2018 HISTORY OF PRESENT ILLNESS: The patient is an 83-year-old male who was brought to the emergency room with complaint of altered mental status, dysuria and frequency on urination. The patient was hospitalized in 04/2018 after a fall at home and inability to ambulate. He was at a subacute care facility, returned home approximately 10 days ago and did well for several days. As per the patient, he developed pain in his right knee, could no longer ambulate and since his elderly could no longer care for him, he presented to the emergency room, was evaluated and admitted. PAST MEDICAL HISTORY: The patient is known to have a past medical history positive for multiple falls at home, the last of which in April he has suffered a laceration of his scalp. He has a history of weakness, osteoarthritis, hypertension, atrial fibrillation and coronary artery disease. SOCIAL HISTORY: He never smoked, is a nonalcoholic drinker. ALLERGIES: HE HAS NO KNOWN MEDICAL ALLERGIES. MEDICATIONS: At the time of admission, his medications included Tylenol with Codeine #3 every 8 hours as needed, Lipitor 40 mg a day, Lasix 40 mg a day, Synthroid 25 mcg daily, Ativan 1 mg twice a day p.r.n., losartan/hydrochlorothiazide 100/25 mg daily, metoprolol tartrate 25 mg twice a day, nifedipine XL 90 mg once a day, omeprazole 40 mg once a day, warfarin 4 mg daily and tramadol 50 mg every 6 hours as needed for pain. REVIEW OF SYSTEMS: Otherwise unremarkable. PHYSICAL EXAMINATION VITAL SIGNS: His blood pressure is 132/67, his heart rate is 81 beats per minute and he is a febrile. HEAD, EYES, EARS, NOSE AND THROAT: Unremarkable. NECK: Supple with no lymphadenopathy. No goiter. LUNGS: Clear to auscultation and percussion. HEART: Regular. No murmurs, gallops or rubs. ABDOMEN: Soft and nontender with no organomegaly. GENITALIA: Normal for age and sex. EXTREMITIES: Free of cyanosis, clubbing or edema. NEUROLOGIC: The patient is mildly confused; however, he does answer questions appropriately. LABORATORY DATA: Shows the white blood cell count to be 9.6, hemoglobin and hematocrit are 12.9 and 39.0 respectively, platelet count is 219. Sodium is 137, potassium is 3.8, blood urea nitrogen 31, creatinine 1.1, nonfasting glucose is 64. PT/INR is low therapeutic at 1.49. A urinalysis is positive for urinary tract infection containing leukocyte esterase and white blood cells are too numerous to count. IMPRESSION AND PLAN: So the patient is to be admitted with altered mental status and urinary tract infection and the patient is to be reevaluated in the morning. Osorio Gunter MD
--- NOTE | 2018-06-11 21:36 | CON ---
DATE: 06/11/2018 LOCATION: The patient is in room 263, bed 1. REASON FOR CONSULTATION: Atrial fibrillation and hypertension. HISTORY OF PRESENT ILLNESS: An 83-year-old male known case of atrial fibrillation, possible coronary artery disease, hypertension, hypothyroidism, osteoarthritis, admitted with altered mental status since last few days. The patient at times is confused. Denies any chest pain, respiratory distress, or palpitation. The patient at this moment is lying flat in bed without any apparent respiratory distress. PAST MEDICAL HISTORY: Positive for atrial fibrillation, hypertension, possible coronary artery disease, hypothyroidism, and osteoarthritis. PERSONAL HISTORY: No history of smoking or drinking. ALLERGIES: NO KNOWN ALLERGIES. HOME MEDICATIONS: Included Ultram 50 mg every 6 hours p.r.n., Coumadin 4 mg daily, omeprazole 40 mg daily, Procardia XL 90 mg daily, metoprolol tartrate 25 mg b.i.d., losartan and hydrochlorothiazide 100/25 mg one tablet daily, Ativan 1 mg b.i.d., Synthroid 25 mcg daily, furosemide 40 mg daily, Lipitor 40 mg daily, acetaminophen with codeine, and Tylenol With Codeine No. 3 tablet p.o. every 8 hours p.r.n. REVIEW OF SYSTEMS: All the systems reviewed, the patient walks with a cane and he also has a tendency to fall down at home. Otherwise, other systems was mentioned in the history. PHYSICAL EXAMINATION: VITAL SIGNS: Blood pressure 94/58, respirations 20, pulse 97, and temperature 99. HEENT: Head is normocephalic. Eyes; pupils normal. Conjunctivae normal. NECK: JVP low. Carotids equal. THORAX: AP diameter normal. LUNGS: Clear. CARDIOVASCULAR: S1 and S2. Soft systolic murmur. No rubs. ABDOMEN: Soft and nontender. No organomegaly. Bowel sounds are normal. EXTREMITIES: No clubbing. No cyanosis. LABORATORY DATA: WBC 9.6, hemoglobin 12.9, hematocrit 39, and platelets 219. Sodium 137, potassium 3.8, BUN 31, and creatinine 1.1. Total bilirubin, AST, and ALT normal. Total protein and albumin normal. Chest x-ray, no active disease. EKG shows atrial fibrillation moderate rate, nonspecific ST-T changes. Monitor time, the patient's heart rate goes to 120 to 130 per minute, initially on admission heart rate was moderate. DIAGNOSES: Atrial fibrillation, at times the patient goes into rapid rate; altered mental status; hypertension; osteoarthritis; hypothyroidism; and possible coronary artery disease. The patient's prothrombin time today is 20.6 with INR 1.82. PLAN: The patient is getting warfarin 4 mg p.o. daily, losartan 100 mg daily, hydrochlorothiazide 25 mg daily, furosemide 40 mg p.o. daily, atorvastatin 40 mg daily, metoprolol 25 mg b.i.d., nifedipine ER, Procardia XL 90 mg p.o. daily, Protonix 40 mg daily, ceftriaxone 1 g IV was given once, levothyroxine 25 mcg daily, and the patient received 5 mg IV Lopressor this morning because of rapid heart rate. I gave Cardizem 10 mg IV bolus stat and then started his Lopressor 25 mg b.i.d. I will monitor the heart rate. We will check TSH in the morning. I will check prothrombin time in the morning and we will also do an echocardiogram and we will follow with you. Izzy Lowery MD
[2018-06-12 07:06] LABS: BASO # 0.03 K/mm3 (0.0-2.0); BASO % 0.2 % (0.0-3.0); EOS # 0.3 (0.0-0.7); EOS % 2.4 % (1.5-5.0); HEMOGLOBIN 12.4 g/dL (14.0-18.0); LYMPH # 1.4 (1.2-3.4); LYMPH % 11.2 % (22.0-35.0); MEAN CELL VOLUME 90.8 fl (80.0-105.0); MEAN CORPUSCULAR HEMOGLOBIN 29.3 pg (25.0-35.0); MEAN CORPUSCULAR HGB CONC 32.3 g/dl (31.0-37.0); MEAN PLATELET VOLUME 9.7 fl (7.0-11.0); MONO # 1.1 (0.1-0.6); RBC 4.23 10^6/uL (3.5-6.1); RED CELL DISTRIBUTION WIDTH 15.6 % (11.5-14.5); WHITE BLOOD COUNT 12.3 10^3/uL (4.5-11.0)
[2018-06-12 07:13] LABS: ALB/GLOB RATIO 0.9 (1.1-1.8); ALBUMIN 2.8 g/dL (3.0-4.8); ALT/SGPT 13 U/L (7-56); AST/SGOT 22 U/L (17-59); BLOOD UREA NITROGEN 27 mg/dL (7-21); CALCIUM 8.7 mg/dL (8.4-10.5); GFR NON-AFRICAN AMERICAN 58; INR 2.45; PROTHROMBIN TIME 27.7 SECONDS (9.4-12.5)
[2018-06-12] MEDS: Tmp-Smz 800 mg-160 mg DS Tab PO SCH ×2 (09:22→17:43)
[2018-06-12] MEDS: NIFEdipine 90 mg ER Tab PO SCH (09:24)
[2018-06-12] MEDS: Levothyroxine 25 MCG TAB PO SCH (09:24)
[2018-06-12] MEDS: Pantoprazole 40 mg EC Tab PO SCH (09:24)
--- NOTE | 2018-06-12 15:23 | CARD ---
APPROVED REPORT Date of service: 06/12/2018 EXAM: Two-dimensional and M-mode echocardiogram with Doppler and color Doppler. INDICATION Atrial Fibrillation Hypertension/HCVD 2D DIMENSIONS Left Atrium (2D)4.4 (1.6-4.0cm)IVSd1.8 (0.7-1.1cm) LVDd4.0 (3.9-5.9cm)PWd1.3 (0.7-1.1cm) LVDs2.9 (2.5-4.0cm)FS (%) 26.5 % LVEF (%)52.4 (>50%) M-Mode DIMENSIONS Aortic Root3.50 (2.2-3.7cm)Aortic Cusp Exc.1.30 (1.5-2.0cm) Aortic Valve AoV Peak Wmyhwyvk324.0cm/Anabel Peak GR.12mmHgLVOT Peak Zkkysjpl029.0cm/s LVOT VTI21.90cm Mitral Valve E/A ratio0.0 TDI E/Lateral E'0.0E/Medial E'0.0 Tricuspid Valve TR Peak [id number]/sRAP [id number] Peak Gr.21mmHg [id number] LEFT VENTRICLE The left ventricle is normal size. There is mild to moderate concentric left ventricular hypertrophy. The left ventricular function is normal. The left ventricular ejection fraction is within the normal range. There is normal LV segmental wall motion. No left ventricle thrombus noted on this study. RIGHT VENTRICLE The right ventricle is normal size. There is normal right ventricular wall thickness. The right ventricular systolic function is normal. ATRIA The left atrium is mildly dilated. The right atrium size is normal. AORTIC VALVE The aortic valve is severely thickened. There is moderate aortic regurgitation. There is no aortic valvular stenosis. MITRAL VALVE The mitral valve is mildly thickened. There is no mitral valve regurgitation noted. There is no mitral valve stenosis. TRICUSPID VALVE The tricuspid valve is normal in structure. There is mild tricuspid regurgitation. There is no tricuspid valve stenosis. PULMONIC VALVE The pulmonary valve is normal in structure. There is no pulmonic valvular regurgitation. GREAT VESSELS The aortic root is normal in size. The IVC is normal in size and collapses >50% with inspiration. <Conclusion> The left ventricle is normal size. There is mild to moderate concentric left ventricular hypertrophy. The left ventricular function is normal. The left ventricular ejection fraction is within the normal range. There is normal LV segmental wall motion. There is moderate aortic regurgitation. There is mild tricuspid regurgitation.
[2018-06-13] MEDS ORDERED: Bupivacaine 0.5% Inj(30mL) IJ ONE (08:31)
[2018-06-13] MEDS ORDERED: MethylPREDNISolone Depo 40 mg/ml Inj IM ONE (08:31)
[2018-06-13] MEDS: Levothyroxine 25 MCG TAB PO SCH (10:35)
[2018-06-13] MEDS: Pantoprazole 40 mg EC Tab PO SCH (10:35)
[2018-06-13] MEDS: Tmp-Smz 800 mg-160 mg DS Tab PO SCH ×2 (10:39→18:58)
[2018-06-13] MEDS: NIFEdipine 90 mg ER Tab PO SCH (10:39)
--- NOTE | 2018-06-13 11:41 | CON ---
DATE: 06/13/2018 ORTHOPEDIC CONSULT LOCATION: The patient room 263, bed 1. He could be seen by me by Dr. Sauer, for right and left knee pain. X-rays of the right knee, which were done on 04/18/2018, show extensive osteoarthritis of the medial joint line with varus knee, has some mild flexion deformity of 5 degrees and to flexed to 110 and he lives with his . He is a poor candidate for total knee replacement, because he seems he does does not understand the need for physical therapy after major procedure of a total knee replacement the risks may be worse then the arthritis, I will treat him symptomatically with Depo-Medrol and Marcaine injections. He has no fluid in the knee. He has complains of right knee pain and he would like to go to therapy as I did talk to the daughter and he is not a surgical candidate for knee replacement, but we would consider something better Depo-Medrol in future, which is the new flexor for this patient. There is a one shot a week for three injections that would help his pain more than cortisone that I gave today and he is not candidate for the sophisticated stem cell replacement, it is not available because of the [employer] insurance has not paid for that, so we will see how he does with this Depo Medrol, Marcaine injection and I could see him in the outpatient if the family would like to tr the euflexor injections if they want to consider at later and I am going to order an x-ray of his left knee, because he does have some pain _on the left knee so once that left knee x-rays suddenly we could give a Depo- Medrol injection in the left knee because he does have pain in both knees. FINAL DIAGNOSES: Osteoarthritis both knees right worse than the left. Hopefully, I could take care of this with Depo-Medrol injections. Osorio Zuleta DO [facility]
--- NOTE | 2018-06-13 12:48 | RAD ---
Date of service: 06/13/2018 PROCEDURE: Right Knee Radiographs. HISTORY: pain COMPARISON: None. TECHNIQUE: 2 views obtained. FINDINGS: BONES: Normal. No fracture. JOINTS: There is severe joint space narrowing in the medial compartment JOINT EFFUSION: None. OTHER FINDINGS: None. IMPRESSION: No evidence of fracture. Severe joint space narrowing in the medial compartment
--- NOTE | 2018-06-14 07:32 | CP.PCM.PN ---
Subjective - Date & Time of Evaluation Date of Evaluation: 06/14/18 Time of Evaluation: 06:05 - Subjective Subjective: Awake, alert, no distress Reason for consultation and follow up: Cardiac evaluation of atrial fibrillation and hypertension, history of chronic atrial fibrillation, on Coumadin, hypertension, hypothyroidism, admitted for altered mental status. Seen and examined by me and Dr. Lowery Objective - Vital Signs/Intake and Output Vital Signs (last 24 hours): Temp Pulse Resp BP Pulse Ox 98.6 F 83 20 132/79 94 L 06/14/18 05:57 06/14/18 05:58 06/14/18 05:57 06/14/18 05:57 06/14/18 05:57 Intake and Output: 06/14/18 06/14/18 06:59 18:59 Intake Total 1860 Output Total 150 Balance 1710 - Medications Medications: Current Medications Atorvastatin Calcium (Lipitor) 40 mg PO DAILY [facility] Last Admin: 06/13/18 10:31 Dose: 40 mg Furosemide (Lasix) 40 mg PO DAILY [facility] Last Admin: 06/13/18 10:31 Dose: 40 mg Hydrochlorothiazide (Hydrodiuril) 25 mg PO DAILY [facility] Last Admin: 06/13/18 10:31 Dose: 25 mg Levothyroxine Sodium (Synthroid) 25 mcg PO DAILY [facility] Last Admin: 06/13/18 10:35 Dose: 25 mcg Lorazepam (Ativan) 1 mg PO BID [facility]; Protocol Last Admin: 06/13/18 18:58 Dose: 1 mg Losartan Potassium (Cozaar) 100 mg PO DAILY [facility] Last Admin: 06/13/18 10:35 Dose: 100 mg Metoprolol Tartrate (Lopressor) 25 mg PO BID [facility] Last Admin: 06/13/18 18:59 Dose: 25 mg Nifedipine (Procardia Xl) 90 mg PO DAILY [facility] Last Admin: 06/13/18 10:39 Dose: 90 mg Pantoprazole Sodium (Protonix Ec Tab) 40 mg PO DAILY [facility] Last Admin: 06/13/18 10:35 Dose: 40 mg Trimethoprim/Sulfamethoxazole (Bactrim Ds Tab) 1 tab PO BID [facility]; Protocol Last Admin: 06/13/18 18:58 Dose: 1 tab Warfarin Sodium (Coumadin) 4 mg PO DAILY [facility] Last Admin: 06/13/18 10:39 Dose: 4 mg - Labs Labs: 06/12/18 06:00 06/12/18 06:00 PT 27.7 SECONDS (9.4-12.5) H 06/12/18 06:00 INR 2.45 06/12/18 06:00 APTT 30.0 Seconds (26.9-38.3) 06/10/18 14:40 - Constitutional Appears: Non-toxic, No Acute Distress - Head Exam Head Exam: NORMAL INSPECTION, NORMOCEPHALIC - Eye Exam Eye Exam: Normal appearance Pupil Exam: NORMAL ACCOMODATION - ENT Exam ENT Exam: Mucous Membranes Moist - Respiratory Exam Respiratory Exam: Decreased Breath Sounds, Clear to Ausculation Bilateral, NORMAL BREATHING PATTERN - Cardiovascular Exam Cardiovascular Exam: Irregular Rhythm, +S1, +S2 Additional comments: telemetry atrial fibrillation - GI/Abdominal Exam GI & Abdominal Exam: Soft, Normal Bowel Sounds - Extremities Exam Extremities Exam: Full ROM, Normal Capillary Refill - Neurological Exam Neurological Exam: Alert, Awake - Skin Skin Exam: Dry, Normal Color, Warm Assessment and Plan - Assessment and Plan (Free Text) Assessment: An 83 year old male who came in to the ER due to altered mental status. History of chronic atrial fibrillation, on coumadin, hypertension, hypothyroidism,osteoarthritis, falls,CVA, incontinence. Urine culture positive for Klebsiella Pneumonia. Had episode of rapid atrial fibrillation and Cardizem IV bolus. Heart rate controlled. Orthopaedics on consult for knee pain due to osteoarthritis. Cardiac status stable. INR therapeutic. Echo done and showed LVEF 52%, moderate aortic regurgitation, mild tricuspid regurgitation. Plan: No distress, awake, confuse at times Heart rate controlled Blood pressure controlled Cardiac status stable INR therapeutic On Lipitor 40 mg daily, Lasix 40 mg daily,Hydrodiuril 25 mg daily, Synthroid 25 mcg daily,Cozaar 100 mg daily, Procardia XL 90 mg daily Warfarin Sodium 4 mg daily Continue current management Will follow up Plan and treatment discussed with Dr. Lowery
[2018-06-14] MEDS: NIFEdipine 90 mg ER Tab PO SCH (11:27)
[2018-06-14] MEDS: Levothyroxine 25 MCG TAB PO SCH (11:29)
[2018-06-14] MEDS: Pantoprazole 40 mg EC Tab PO SCH (11:29)
[2018-06-14] MEDS: Tmp-Smz 800 mg-160 mg DS Tab PO SCH (11:33)
[2018-06-14] MEDS ORDERED: guaiFENesin DM 100 mg-10 mg/5 ml UD PO PRN (11:53)
--- NOTE | 2018-06-15 06:53 | CP.PCM.PN ---
Subjective - Date & Time of Evaluation Date of Evaluation: 06/15/18 Time of Evaluation: 06:05 - Subjective Subjective: Awake, alert, no distress, lying in bed Reason for consultation and follow up: Cardiac evaluation of atrial fibrillation and hypertension, history of chronic atrial fibrillation, on Coumadin, hypertension, hypothyroidism, admitted for altered mental status. Seen and examined by me and Dr. Lowery Objective - Vital Signs/Intake and Output Vital Signs (last 24 hours): Temp Pulse Resp BP Pulse Ox 97.4 F L 82 20 125/80 97 06/15/18 06:00 06/15/18 06:00 06/15/18 06:00 06/15/18 06:00 06/15/18 06:00 Intake and Output: 06/14/18 06/15/18 18:59 06:59 Intake Total 540 180 Balance 540 180 - Medications Medications: Current Medications Atorvastatin Calcium (Lipitor) 40 mg PO DAILY [facility] Last Admin: 06/14/18 11:27 Dose: 40 mg Furosemide (Lasix) 40 mg PO DAILY [facility] Last Admin: 06/14/18 11:30 Dose: 40 mg Guaifenesin/Dextromethorphan (Robitussin Dm) 5 ml PO Q4H PRN PRN Reason: Cough Hydrochlorothiazide (Hydrodiuril) 25 mg PO DAILY [facility] Last Admin: 06/14/18 11:28 Dose: 25 mg Levothyroxine Sodium (Synthroid) 25 mcg PO DAILY [facility] Last Admin: 06/14/18 11:29 Dose: 25 mcg Lorazepam (Ativan) 1 mg PO BID [facility]; Protocol Last Admin: 06/14/18 18:33 Dose: 1 mg Losartan Potassium (Cozaar) 100 mg PO DAILY [facility] Last Admin: 06/14/18 11:28 Dose: 100 mg Metoprolol Tartrate (Lopressor) 25 mg PO BID [facility] Last Admin: 06/14/18 18:33 Dose: 25 mg Nifedipine (Procardia Xl) 90 mg PO DAILY [facility] Last Admin: 06/14/18 11:27 Dose: 90 mg Pantoprazole Sodium (Protonix Ec Tab) 40 mg PO DAILY [facility] Last Admin: 06/14/18 11:29 Dose: 40 mg Warfarin Sodium (Coumadin) 4 mg PO DAILY [facility] Last Admin: 06/14/18 11:28 Dose: 4 mg - Labs Labs: 06/12/18 06:00 06/12/18 06:00 PT 27.7 SECONDS (9.4-12.5) H 06/12/18 06:00 INR 2.45 06/12/18 06:00 APTT 30.0 Seconds (26.9-38.3) 06/10/18 14:40 - Constitutional Appears: Non-toxic, No Acute Distress - Head Exam Head Exam: NORMAL INSPECTION, NORMOCEPHALIC - Eye Exam Eye Exam: Normal appearance Pupil Exam: NORMAL ACCOMODATION - ENT Exam ENT Exam: Mucous Membranes Moist - Neck Exam Neck Exam: Full ROM - Respiratory Exam Respiratory Exam: Decreased Breath Sounds, Clear to Ausculation Bilateral, NORMAL BREATHING PATTERN - Cardiovascular Exam Cardiovascular Exam: Irregular Rhythm, +S1, +S2 Additional comments: atrial fibrillation 70-80's - GI/Abdominal Exam GI & Abdominal Exam: Soft, Normal Bowel Sounds - Extremities Exam Extremities Exam: Full ROM - Neurological Exam Neurological Exam: Alert, Awake Additional comments: confuse at times - Psychiatric Exam Psychiatric exam: Normal Affect, Normal Mood - Skin Skin Exam: Dry, Normal Color, Warm Assessment and Plan - Assessment and Plan (Free Text) Assessment: An 83 year old male who came in to the ER due to altered mental status. History of chronic atrial fibrillation, on coumadin, hypertension, hypothyroidism,oste oarthritis, falls,CVA, incontinence. Urine culture positive for Klebsiella Pneumonia. Had episode of rapid atrial fibrillation and Cardizem IV bolus. Orthopaedics on consult for knee pain due to osteoarthritis. Cardiac status stable. Echo done and showed LVEF 52%, moderate aortic regurgitation, mild tricuspid regurgitation. Controlled atrial fibrillation. INR therapeutic on Coumadin. Will discontinue telemetry. Discharge planning. Plan: No distress, awake Heart rate controlled, Atrial fibrillation controlled rate Blood pressure controlled Cardiac status stable INR therapeutic, on Coumadin Will discontinue telemetry On Lipitor 40 mg daily, Lasix 40 mg daily,Hydrodiuril 25 mg daily, Synthroid 25 mcg daily,Cozaar 100 mg daily, Procardia XL 90 mg daily Warfarin Sodium 4 mg daily Continue current management Continue current medications Discharge planning Will follow up Plan and treatment discussed with Dr. Lowery
[2018-06-15] MEDS: Levothyroxine 25 MCG TAB PO SCH (10:03)
[2018-06-15] MEDS: NIFEdipine 90 mg ER Tab PO SCH (10:03)
[2018-06-15] MEDS: Pantoprazole 40 mg EC Tab PO SCH (10:03)
--- NOTE | 2018-06-15 11:13 | PN ---
DATE: 06/15/2018 ROOM: 263, bed 1. I injected his right knee for osteoarthritis, the medial side on 06/13/2018, he feels much better, not cured but at least it helped some of his symptoms of pain and synovitis. I am going to order an x-ray of his left knee as it was not done yet to see what that looks like because he did have arthritis on that too. Eventually, he is going to need Euflexxa that I can give as an outpatient and this will be longer lasting than the cortisone injection, but that has to be done in the office after I get approval from the insurance company. I told the family to give me a call me, we could work it out in the office and it will be one injection a week for three injections. I will follow with the patient at these, get left knee x-rayed now. Osorio Zuleta DO
--- NOTE | 2018-06-15 13:13 | RAD ---
Date of service: 06/15/2018 PROCEDURE: Left Knee Radiographs. HISTORY: Pain. COMPARISON: None. TECHNIQUE: 2 views obtained. FINDINGS: BONES: Normal. No fracture. JOINTS: Tricompartmental osteoarthritis most pronounced in the medial compartment. No articular erosion. JOINT EFFUSION: None. OTHER FINDINGS: None. IMPRESSION: Tricompartmental osteoarthritis.
[2018-06-15] MEDS: cefTRIAXone 1 gm 1 GM/100 ML BAG IVPB SCH (22:28)
--- NOTE | 2018-06-16 01:44 | PN ---
DATE: 06/15/2018 LOCATION: Room 373, bed 2. SUBJECTIVE: He was transferred from telemetry after his telemetry unit was discontinued. He is quite awake, alert and clear. In fact, when I came into the room he was on the phone talking to his son. I spoke to his son at length regarding his father's condition. Mental status is dramatically improved. Urinary tract infection is treated. He is on antibiotics, responding nicely. PHYSICAL EXAMINATION: HEENT: Head and neck unremarkable. LUNGS: Showed good aeration, right and left. HEART: Regular. Non-tachycardiac. ABDOMEN: Soft. EXTREMITIES: Show no edema. IMPRESSION: Urinary tract infection. PLAN: We will ask ID to see the patient and approve p.o. Cipro for urinary tract infection with sensitivities to Cipro. We will also ask to repeat UA and C and S. I spoke with the patient's son about discharge planing. I believe we were initially planning to go to transitional care unit, but his insurance, the [employer], does not allow for that, so the option would be either subacute rehab facility in network or home. The patient lives in a two-family home, his [id number] lives down stairs. Her , the patient's son, just a few weeks ago. So, she is terribly distraught and would need additional help from visiting nurse, social secretary and other family members. We will talk to ID and all parties involved tomorrow and plan to discharge soon. Patrick Gunter MD [facility]
[2018-06-16 06:42] LABS: PROTHROMBIN TIME 39.8 SECONDS (9.4-12.5)
[2018-06-16 06:43] LABS: BASO # 0.05 K/mm3 (0.0-2.0); BASO % 0.5 % (0.0-3.0); EOS # 0.5 (0.0-0.7); EOS % 4.5 % (1.5-5.0); HEMOGLOBIN 14.8 g/dL (14.0-18.0); LYMPH # 2.2 (1.2-3.4); LYMPH % 21.1 % (22.0-35.0); MEAN CELL VOLUME 89.9 fl (80.0-105.0); MEAN CORPUSCULAR HEMOGLOBIN 29.4 pg (25.0-35.0); MEAN CORPUSCULAR HGB CONC 32.7 g/dl (31.0-37.0); MEAN PLATELET VOLUME 9.6 fl (7.0-11.0); MONO # 1.1 (0.1-0.6); MONO % 10.4 % (1.0-6.0); PLATELET COUNT 252 10^3/uL (120.0-450.0); RBC 5.04 10^6/uL (3.5-6.1); RED CELL DISTRIBUTION WIDTH 15.4 % (11.5-14.5); WHITE BLOOD COUNT 10.5 10^3/uL (4.5-11.0)
[2018-06-16 06:48] LABS: BLOOD UREA NITROGEN 31 mg/dL (7-21); CALCIUM 9.2 mg/dL (8.4-10.5); GFR NON-AFRICAN AMERICAN > 60
--- NOTE | 2018-06-16 06:52 | CP.PCM.PN ---
Subjective - Date & Time of Evaluation Date of Evaluation: 06/16/18 Time of Evaluation: 06:45 - Subjective Subjective: Awake, alert, no distress, feels okay Reason for consultation and follow up: Cardiac evaluation of atrial fibrillation and hypertension, history of chronic atrial fibrillation, on Coumadin, hypertension, hypothyroidism, admitted for altered mental status. Seen and examined by me and Dr. Lowery Objective - Vital Signs/Intake and Output Vital Signs (last 24 hours): Temp Pulse Resp BP Pulse Ox 98.4 F 82 20 99/60 L 97 06/15/18 18:51 06/15/18 18:51 06/15/18 18:51 06/15/18 18:51 06/15/18 18:51 Intake and Output: 06/15/18 06/16/18 18:59 06:59 Intake Total 540 0 Output Total 100 1 Balance 440 -1 - Medications Medications: Current Medications Atorvastatin Calcium (Lipitor) 40 mg PO DAILY [facility] Last Admin: 06/15/18 10:02 Dose: 40 mg Furosemide (Lasix) 40 mg PO DAILY [facility] Last Admin: 06/15/18 10:02 Dose: 40 mg Guaifenesin/Dextromethorphan (Robitussin Dm) 5 ml PO Q4H PRN PRN Reason: Cough Hydrochlorothiazide (Hydrodiuril) 25 mg PO DAILY [facility] Last Admin: 06/15/18 10:02 Dose: 25 mg Ceftriaxone Sodium (Rocephin 1 Gram Ivpb) 1 gm in 100 mls @ 100 mls/hr IVPB DAILY [facility]; Protocol Stop: 06/22/18 20:17 Last Admin: 06/15/18 22:28 Dose: 100 mls/hr Levothyroxine Sodium (Synthroid) 25 mcg PO DAILY [facility] Last Admin: 06/15/18 10:03 Dose: 25 mcg Lorazepam (Ativan) 1 mg PO BID [facility]; Protocol Last Admin: 06/15/18 17:19 Dose: 1 mg Losartan Potassium (Cozaar) 100 mg PO DAILY [facility] Last Admin: 06/15/18 10:03 Dose: 100 mg Metoprolol Tartrate (Lopressor) 25 mg PO BID [facility] Last Admin: 06/15/18 17:19 Dose: 25 mg Nifedipine (Procardia Xl) 90 mg PO DAILY [facility] Last Admin: 06/15/18 10:03 Dose: 90 mg Pantoprazole Sodium (Protonix Ec Tab) 40 mg PO DAILY [facility] Last Admin: 06/15/18 10:03 Dose: 40 mg Warfarin Sodium (Coumadin) 4 mg PO DAILY [facility] Last Admin: 06/15/18 10:03 Dose: 4 mg - Labs Labs: 06/12/18 06:00 06/16/18 05:01 PT 39.8 SECONDS (9.4-12.5) H 06/16/18 05:01 INR 2.45 06/12/18 06:00 APTT 30.0 Seconds (26.9-38.3) 06/10/18 14:40 - Constitutional Appears: Non-toxic, No Acute Distress - Head Exam Head Exam: NORMAL INSPECTION, NORMOCEPHALIC - Eye Exam Eye Exam: Normal appearance Pupil Exam: NORMAL ACCOMODATION - ENT Exam ENT Exam: Mucous Membranes Moist, Normal Exam - Respiratory Exam Respiratory Exam: Decreased Breath Sounds, NORMAL BREATHING PATTERN - Cardiovascular Exam Cardiovascular Exam: +S1, +S2 - GI/Abdominal Exam GI & Abdominal Exam: Soft, Normal Bowel Sounds - Extremities Exam Extremities Exam: Full ROM - Neurological Exam Neurological Exam: Alert, Awake - Psychiatric Exam Psychiatric exam: Normal Affect, Normal Mood - Skin Skin Exam: Dry, Normal Color, Warm Assessment and Plan - Assessment and Plan (Free Text) Assessment: An 83 year old male who came in to the ER due to altered mental status. History of chronic atrial fibrillation, on coumadin, hypertension, hypothyroidism,osteoarthritis, falls,CVA, incontinence. Urine culture positive for Klebsiella Pneumonia. Had episode of rapid atrial fibrillation and Cardizem IV bolus. Orthopaedics on consult for knee pain due to osteoarthritis. Cardiac status stable. Echo done and showed LVEF 52%, moderate aortic regurgitation, mild tricuspid regurgitation. Controlled atrial fibrillation. INR therapeutic on Coumadin. Continue IV antibiotics per ID.Steroid injection on right knee done by Dr. Zuleta. Left knee X ray showed tricompartmental osteoarthritis, possible injection in doctors office. Cardiac status stable. Discharge planning. Plan: Feels okay, No distress, awake Heart rate controlled Blood pressure controlled Cardiac status stable INR 3.52 today , Hold Coumadin today, INR level in am On Lipitor 40 mg daily, Lasix 40 mg daily,Hydrodiuril 25 mg daily, Synthroid 25 mcg daily,Cozaar 100 mg daily, Procardia XL 90 mg daily Warfarin Sodium 4 mg daily Continue current management Continue current medications Continue IV antibiotics per iD for UTI Followed up by Ortho for knee pain Discharge planning Will follow up Plan and treatment discussed with Dr. Lowery
[2018-06-16 06:57] LABS: INR 3.52
[2018-06-16] MEDS ORDERED: MethylPREDNISolone Depo 40 mg/ml Inj IM ONE (08:03)
[2018-06-16] MEDS ORDERED: Bupivacaine 0.5% Inj(30mL) IJ ONE (08:03)
[2018-06-16] MEDS: cefTRIAXone 1 gm 1 GM/100 ML BAG IVPB SCH (09:11)
[2018-06-16] MEDS: NIFEdipine 90 mg ER Tab PO SCH (09:12)
[2018-06-16] MEDS: Pantoprazole 40 mg EC Tab PO SCH (09:12)
[2018-06-16] MEDS: Levothyroxine 25 MCG TAB PO SCH (09:12)
--- NOTE | 2018-06-16 10:19 | CP.PCM.CON ---
<Rajesh Daniel - Last Filed: 06/16/18 10:15> History of Present Illness - History of Present Illness History of Present Illness: Rajesh Daniel D.O. PGY-3, Internal Medicine Resident, Infectious Disease Consultation Note 83-year-old male with a past medical history of hypertension, CAD, OA, and atrial fibrillation who originally presented for altered mental status as well as dysuria and frequency in urination. Infectious disease consultation was requested. Patient was seen and examined at bedside. Patient appears comfortable. Patient states that his urinary symptoms have slowly improved. Patient does seem slightly confused at times but there is a slight issue with language. Patient states that he has been eating well and sleeping well without any complaints. Right now he mostly complains of bilateral knee discomfort from his arthritis. Patient denies any fevers or chills at this time. Patient denies any nausea, vomiting, diarrhea, constipation. Review of Systems - Review of Systems All systems: reviewed and no additional remarkable complaints except (as per HPI) Past Patient History - Past Social History Smoking Status: Unknown If Ever Smoked - CARDIAC Hx Cardiac Disorders: Yes (CAD, AFIB) Hx Hypertension: Yes - PULMONARY Hx Respiratory Disorders: No - NEUROLOGICAL HX Cerebrovascular Accident: Yes - HEENT Hx HEENT Problems: Yes Hx Cataracts: Yes - RENAL Hx Chronic Kidney Disease: No - ENDOCRINE/METABOLIC Hx Endocrine Disorders: No - HEMATOLOGICAL/ONCOLOGICAL Hx Blood Disorders: No - INTEGUMENTARY Hx Dermatological Problems: Yes - MUSCULOSKELETAL/RHEUMATOLOGICAL Hx Arthritis: Yes - GASTROINTESTINAL Hx Gastrointestinal Disorders: Yes (INCONTINENT) - GENITOURINARY/GYNECOLOGICAL Hx Genitourinary Disorders: Yes Hx Incontinence: Yes - PSYCHIATRIC Hx Psychophysiologic Disorder: Yes Hx Anxiety: Yes Hx Substance Use: No - SURGICAL HISTORY Hx Open Heart Surgery: Yes Other/Comment: shoulder ,back surgery,rt hip replacement - ANESTHESIA Hx Anesthesia: Yes Hx Anesthesia Reactions: No Hx Malignant Hyperthermia: No Meds Allergies/Adverse Reactions: Allergies Allergy/AdvReac Type Severity Reaction Status Date / Time No Known Allergies Allergy Verified 04/16/18 20:18 - Medications Medications: Current Medications Atorvastatin Calcium (Lipitor) 40 mg PO DAILY [facility] Last Admin: 06/16/18 09:12 Dose: 40 mg Furosemide (Lasix) 40 mg PO DAILY [facility] Last Admin: 06/16/18 09:12 Dose: 40 mg Guaifenesin/Dextromethorphan (Robitussin Dm) 5 ml PO Q4H PRN PRN Reason: Cough Hydrochlorothiazide (Hydrodiuril) 25 mg PO DAILY [facility] Last Admin: 06/16/18 09:12 Dose: 25 mg Ceftriaxone Sodium (Rocephin 1 Gram Ivpb) 1 gm in 100 mls @ 100 mls/hr IVPB DAILY [facility]; Protocol Stop: 06/22/18 20:17 Last Admin: 06/16/18 09:11 Dose: 100 mls/hr Levothyroxine Sodium (Synthroid) 25 mcg PO DAILY [facility] Last Admin: 06/16/18 09:12 Dose: 25 mcg Lorazepam (Ativan) 1 mg PO BID [facility]; Protocol Last Admin: 06/16/18 09:12 Dose: 1 mg Losartan Potassium (Cozaar) 100 mg PO DAILY [facility] Last Admin: 06/16/18 09:14 Dose: 100 mg Metoprolol Tartrate (Lopressor) 25 mg PO BID [facility] Last Admin: 06/16/18 09:12 Dose: 25 mg Nifedipine (Procardia Xl) 90 mg PO DAILY [facility] Last Admin: 06/16/18 09:12 Dose: 90 mg Pantoprazole Sodium (Protonix Ec Tab) 40 mg PO DAILY [facility] Last Admin: 06/16/18 09:12 Dose: 40 mg Warfarin Sodium (Coumadin) 4 mg PO DAILY [facility] Last Admin: 06/15/18 10:03 Dose: 4 mg Physical Exam - Constitutional Appears: Non-toxic, No Acute Distress - Eye Exam Eye Exam: EOMI. absent: Scleral icterus - ENT Exam ENT Exam: Mucous Membranes Moist, Normal Oropharynx - Neck Exam Neck exam: Positive for: Normal Inspection - Respiratory Exam Respiratory Exam: Clear to Auscultation Bilateral. absent: Rales, Rhonchi, Wheezes - Cardiovascular Exam Cardiovascular Exam: Irregular Rhythm, +S1, +S2. absent: RRR - GI/Abdominal Exam GI & Abdominal Exam: Normal Bowel Sounds, Soft. absent: Tenderness - Extremities Exam Extremities exam: Negative for: calf tenderness, pedal edema Additional comments: osteoarthritic knee changes - Neurological Exam Neurological exam: Alert - Skin Skin Exam: Dry, Warm Results - Vital Signs Recent Vital Signs: Last Vital Signs Temp 97.8 F 06/16/18 07:58 Pulse 82 06/16/18 07:58 Resp 20 06/16/18 07:58 BP 156/72 H 06/16/18 09:12 Pulse Ox 92 L 06/16/18 07:58 - Labs Result Diagrams: 06/16/18 05:01 06/16/18 05:01 Labs: Laboratory Results - last 24 hr 06/16/18 06/16/18 06/16/18 05:01 05:01 05:01 WBC 10.5 RBC 5.04 Hgb 14.8 D Hct 45.3 MCV 89.9 MCH 29.4 MCHC 32.7 RDW 15.4 H Plt Count 252 MPV 9.6 Neut % (Auto) 63.5 Lymph % (Auto) 21.1 L Posey % (Auto) 10.4 H Eos % (Auto) 4.5 Baso % (Auto) 0.5 Lymph # (Auto) 2.2 Posey # (Auto) 1.1 H Eos # (Auto) 0.5 Baso # (Auto) 0.05 Absolute Neuts (auto) 6.70 H PT 39.8 H INR 3.52 H* Sodium Potassium Chloride Carbon Dioxide Anion Gap BUN Creatinine Est GFR ( Amer) Est GFR (Non-Af Amer) Random Glucose Calcium Prostate Specific Ag 11.3 H 06/16/18 05:01 WBC RBC Hgb Hct MCV MCH MCHC RDW Plt Count MPV Neut % (Auto) Lymph % (Auto) Posey % (Auto) Eos % (Auto) Baso % (Auto) Lymph # (Auto) Posey # (Auto) Eos # (Auto) Baso # (Auto) Absolute Neuts (auto) PT INR Sodium 136 Potassium 3.5 L Chloride 101 Carbon Dioxide 26 Anion Gap 13 BUN 31 H Creatinine 1.1 Est GFR ( Amer) > 60 Est GFR (Non-Af Amer) > 60 Random Glucose 112 H Calcium 9.2 Prostate Specific Ag Assessment & Plan - Assessment and Plan (Free Text) Assessment: 83-year-old male with a past medical history of hypertension, CAD, OA, and atrial fibrillation who originally presented for altered mental status as well as dysuria and frequency in urination. Infectious disease consultation was requested. Plan: Sepsis with leukocytosis and tachycardia secondary to Klebsiella pneumonia urinary tract infection Hypertension A. fib OA Afebrile Leukocytosis resolved Instead of using a fluoroquinolone which will have drug drug interaction with the patient's Coumadin we will instead place the patient on ceftriaxone Blood cultures have been negative to a 2 on day 5 Repeat UA pending with urine C&S Clinically appears to be doing well PSA elevated at 11.3, no inpatient baseline Recommend patient to see urology upon discharge and have recheck of PSA Upon discharge patient can be switched to p.o. Vantin 200 mg twice daily for a 5-7 day course We will follow with you Patient was seen and examined and case to be discussed with attending physician Thank you for the pleasure participating in the care of this interesting patient - Date & Time Date: 06/16/18 Time: 07:55 <Jared Rollins - Last Filed: 06/16/18 18:16> Meds - Medications Medications: Current Medications Atorvastatin Calcium (Lipitor) 40 mg PO DAILY [facility] Last Admin: 06/16/18 09:12 Dose: 40 mg Furosemide (Lasix) 40 mg PO DAILY [facility] Last Admin: 06/16/18 09:12 Dose: 40 mg Guaifenesin/Dextromethorphan (Robitussin Dm) 5 ml PO Q4H PRN PRN Reason: Cough Hydrochlorothiazide (Hydrodiuril) 25 mg PO DAILY [facility] Last Admin: 06/16/18 09:12 Dose: 25 mg Ceftriaxone Sodium (Rocephin 1 Gram Ivpb) 1 gm in 100 mls @ 100 mls/hr IVPB DAILY [facility]; Protocol Stop: 06/22/18 20:17 Last Admin: 06/16/18 09:11 Dose: 100 mls/hr Levothyroxine Sodium (Synthroid) 25 mcg PO DAILY [facility] Last Admin: 06/16/18 09:12 Dose: 25 mcg Lorazepam (Ativan) 1 mg PO BID [facility]; Protocol Last Admin: 06/16/18 17:50 Dose: 1 mg Losartan Potassium (Cozaar) 100 mg PO DAILY [facility] Last Admin: 06/16/18 09:14 Dose: 100 mg Metoprolol Tartrate (Lopressor) 25 mg PO BID [facility] Last Admin: 06/16/18 17:48 Dose: Not Given Nifedipine (Procardia Xl) 90 mg PO DAILY [facility] Last Admin: 06/16/18 09:12 Dose: 90 mg Pantoprazole Sodium (Protonix Ec Tab) 40 mg PO DAILY [facility] Last Admin: 06/16/18 09:12 Dose: 40 mg Warfarin Sodium (Coumadin) 4 mg PO DAILY [facility] Last Admin: 06/15/18 10:03 Dose: 4 mg Results - Vital Signs Recent Vital Signs: Last Vital Signs Temp 98 F 06/16/18 17:43 Pulse 69 06/16/18 17:43 Resp 16 06/16/18 17:43 BP 86/59 L 06/16/18 17:43 Pulse Ox 97 06/16/18 17:43 - Labs Result Diagrams: 06/16/18 05:01 06/16/18 05:01 Labs: Laboratory Results - last 24 hr 06/16/18 06/16/18 06/16/18 05:01 05:01 05:01 WBC 10.5 RBC 5.04 Hgb 14.8 D Hct 45.3 MCV 89.9 MCH 29.4 MCHC 32.7 RDW 15.4 H Plt Count 252 MPV 9.6 Neut % (Auto) 63.5 Lymph % (Auto) 21.1 L Posey % (Auto) 10.4 H Eos % (Auto) 4.5 Baso % (Auto) 0.5 Lymph # (Auto) 2.2 Posey # (Auto) 1.1 H Eos # (Auto) 0.5 Baso # (Auto) 0.05 Absolute Neuts (auto) 6.70 H Neutrophils % (Manual) 66 Lymphocytes % (Manual) 16 L Atypical Lymphs % 5 H Monocytes % (Manual) 6 Eosinophils % (Manual) 7 H PT 39.8 H INR 3.52 H* Sodium Potassium Chloride Carbon Dioxide Anion Gap BUN Creatinine Est GFR ( Amer) Est GFR (Non-Af Amer) Random Glucose Calcium Prostate Specific Ag 11.3 H 06/16/18 05:01 WBC RBC Hgb Hct MCV MCH MCHC RDW Plt Count MPV Neut % (Auto) Lymph % (Auto) Posey % (Auto) Eos % (Auto) Baso % (Auto) Lymph # (Auto) Posey # (Auto) Eos # (Auto) Baso # (Auto) Absolute Neuts (auto) Neutrophils % (Manual) Lymphocytes % (Manual) Atypical Lymphs % Monocytes % (Manual) Eosinophils % (Manual) PT INR Sodium 136 Potassium 3.5 L Chloride 101 Carbon Dioxide 26 Anion Gap 13 BUN 31 H Creatinine 1.1 Est GFR ( Amer) > 60 Est GFR (Non-Af Amer) > 60 Random Glucose 112 H Calcium 9.2 Prostate Specific Ag Attending/Attestation - Attestation I have personally seen and examined this patient.: Yes I have fully participated in the care of the patient.: Yes I have reviewed all pertinent clinical information: Yes
[2018-06-16 10:35] LABS: ATYPICAL LYMPHOCYTE 5 % (0.0-0.0); EOSINOPHIL 7 % (0.0-3.0); LYMPHOCYTE 16 % (22.0-35.0); MONOCYTE 6 % (1.0-6.0); NEUTROPHIL 66 % (50.0-70.0)
[2018-06-16 19:03] LABS: URINE APPEARANCE CLEAR (CLEAR); URINE BILIRUBIN NEGATIVE (NEGATIVE); URINE BLOOD NEGATIVE (NEGATIVE); URINE COLOR YELLOW (YELLOW); URINE GLUCOSE (UA) NEGATIVE (NEGATIVE); URINE LEUKOCYTE ESTERASE NEGATIVE Leu/uL (NEGATIVE); URINE PROTEIN NEGATIVE mg/dL (<30 mg/dL); URINE UROBILINOGEN 0.2 E.U./dL (<1 E.U./dL)
--- NOTE | 2018-06-17 01:59 | PROCN ---
DATE: 06/16/2018 NOTE: He has a history of osteoarthritis of both knees, right worse than the left. The right knee was injected about a week ago with good results with Depo-Medrol. I just talked to the daughter and she wants me to now give him a cortisone shot in the left knee for pain relief. So I am going to inject to left knee with Depo-Medrol and Marcaine. Under sterile conditions, we prepped and draped the knee and injected directly with Depo-Medrol and Marcaine for pain relief. I told the daughter he could come to the office for the Euflexxa when the office approves him so she has to call the office to communicate with him to see when I could see the [id number] for a Euflexxa injection, but today it was injected with Depo-Medrol and Marcaine for the left knee for pain relief. Osorio Zuleta DO
--- NOTE | 2018-06-17 08:20 | CP.PCM.PN ---
Subjective - Date & Time of Evaluation Date of Evaluation: 06/17/18 Time of Evaluation: 07:15 - Subjective Subjective: Lying in bed, Awake, alert, no distress, feels okay Reason for consultation and follow up: Cardiac evaluation of atrial fibrillation and hypertension, history of chronic atrial fibrillation, on Coumadin, hypertension, hypothyroidism, admitted for altered mental status. Seen and examined by me and Dr. Solano Objective - Vital Signs/Intake and Output Vital Signs (last 24 hours): Temp Pulse Resp BP Pulse Ox 98 F 69 16 115/76 97 06/16/18 17:43 06/16/18 17:43 06/16/18 17:43 06/16/18 22:00 06/16/18 17:43 Intake and Output: 06/17/18 06/17/18 06:59 18:59 Intake Total 1760 Output Total 1075 Balance 685 - Medications Medications: Current Medications Atorvastatin Calcium (Lipitor) 40 mg PO DAILY [facility] Last Admin: 06/16/18 09:12 Dose: 40 mg Furosemide (Lasix) 40 mg PO DAILY [facility] Last Admin: 06/16/18 09:12 Dose: 40 mg Guaifenesin/Dextromethorphan (Robitussin Dm) 5 ml PO Q4H PRN PRN Reason: Cough Hydrochlorothiazide (Hydrodiuril) 25 mg PO DAILY [facility] Last Admin: 06/16/18 09:12 Dose: 25 mg Ceftriaxone Sodium (Rocephin 1 Gram Ivpb) 1 gm in 100 mls @ 100 mls/hr IVPB DAILY [facility]; Protocol Stop: 06/22/18 20:17 Last Admin: 06/16/18 09:11 Dose: 100 mls/hr Levothyroxine Sodium (Synthroid) 25 mcg PO DAILY [facility] Last Admin: 06/16/18 09:12 Dose: 25 mcg Lorazepam (Ativan) 1 mg PO BID [facility]; Protocol Last Admin: 06/16/18 17:50 Dose: 1 mg Losartan Potassium (Cozaar) 100 mg PO DAILY [facility] Last Admin: 06/16/18 09:14 Dose: 100 mg Metoprolol Tartrate (Lopressor) 25 mg PO BID [facility] Last Admin: 06/16/18 17:48 Dose: Not Given Nifedipine (Procardia Xl) 90 mg PO DAILY [facility] Last Admin: 06/16/18 09:12 Dose: 90 mg Pantoprazole Sodium (Protonix Ec Tab) 40 mg PO DAILY [facility] Last Admin: 06/16/18 09:12 Dose: 40 mg Warfarin Sodium (Coumadin) 4 mg PO DAILY [facility] Last Admin: 06/15/18 10:03 Dose: 4 mg - Labs Labs: 06/16/18 05:01 06/16/18 05:01 PT 39.8 SECONDS (9.4-12.5) H 06/16/18 05:01 INR 3.52 H* 06/16/18 05:01 APTT 30.0 Seconds (26.9-38.3) 06/10/18 14:40 - Constitutional Appears: Non-toxic, No Acute Distress - Head Exam Head Exam: NORMAL INSPECTION, NORMOCEPHALIC - Eye Exam Eye Exam: Normal appearance Pupil Exam: NORMAL ACCOMODATION - ENT Exam ENT Exam: Mucous Membranes Moist, Normal Exam - Respiratory Exam Respiratory Exam: Decreased Breath Sounds, Clear to Ausculation Bilateral, NORMAL BREATHING PATTERN - Cardiovascular Exam Cardiovascular Exam: +S1, +S2 - GI/Abdominal Exam GI & Abdominal Exam: Soft, Normal Bowel Sounds - Extremities Exam Extremities Exam: Full ROM - Neurological Exam Neurological Exam: Alert, Awake, Oriented x3 - Psychiatric Exam Psychiatric exam: Normal Affect, Normal Mood - Skin Skin Exam: Dry, Normal Color, Warm Assessment and Plan - Assessment and Plan (Free Text) Assessment: An 83 year old male who came in to the ER due to altered mental status. History of chronic atrial fibrillation, on coumadin, hypertension, hypothyroidism,osteoarthritis, falls,CVA, incontinence. Urine culture positive for Klebsiella Pneumonia. Had episode of rapid atrial fibrillation and Cardizem IV bolus. Orthopaedics on consult for knee pain due to osteoarthritis. Cardiac status stable. Echo done and showed LVEF 52%, moderate aortic regurgitation, mild tricuspid regurgitation. Controlled atrial fibrillation. INR therapeutic on Coumadin. Continue IV antibiotics per ID.Steroid injection on right knee done by Dr. Zuleta. Left knee X ray showed tricompartmental osteoarthritis, possible injection in doctors office. Cardiac status stable. Discharge planning. Held coumadin yesterday due to elevated INR. Will check level today. Plan: No distress, awake Heart rate controlled Blood pressure controlled Cardiac status stable Held Coumadin yesterday for elevated INR, will check level today On Lipitor 40 mg daily, Lasix 40 mg daily,Hydrodiuril 25 mg daily, Synthroid 25 mcg daily,Cozaar 100 mg daily, Procardia XL 90 mg daily Warfarin Sodium 4 mg daily Continue current management Continue current medications Continue IV antibiotics per ID for UTI Discharge planning Will follow up Plan and treatment discussed with Dr. Solano
[2018-06-17] MEDS: NIFEdipine 90 mg ER Tab PO SCH (09:07)
[2018-06-17] MEDS: Levothyroxine 25 MCG TAB PO SCH (09:07)
[2018-06-17] MEDS: Pantoprazole 40 mg EC Tab PO SCH (09:08)
[2018-06-17 09:21] LABS: INR 2.77; PROTHROMBIN TIME 31.3 SECONDS (9.4-12.5)
--- NOTE | 2018-06-17 14:48 | CP.PCM.PN ---
Subjective - Date & Time of Evaluation Date of Evaluation: 06/17/18 Time of Evaluation: 08:00 - Subjective Subjective: Rajesh Daniel D.O. PGY-3, Internal Medicine Resident, Infectious Disease Progress Note 83-year-old male with a past medical history of hypertension, CAD, OA, and atrial fibrillation who originally presented for altered mental status as well as dysuria and frequency in urination. Infectious disease consultation was requested. Patient was seen and examined at bedside. In great spirits. No acute complaints. No dysuria. Objective - Vital Signs/Intake and Output Vital Signs (last 24 hours): Temp Pulse Resp BP Pulse Ox 97.9 F 77 20 126/72 97 06/17/18 08:52 06/17/18 08:52 06/17/18 08:52 06/17/18 09:08 06/17/18 08:52 Intake and Output: 06/17/18 06/17/18 06:59 18:59 Intake Total 1760 Output Total 1075 Balance 685 - Medications Medications: Current Medications Acetaminophen (Tylenol 325mg Tab) 650 mg PO Q6H PRN PRN Reason: Fever >100.4 F Acetaminophen (Tylenol 325mg Tab) 650 mg PO DAILY [facility] Last Admin: 06/17/18 13:01 Dose: Not Given Atorvastatin Calcium (Lipitor) 40 mg PO DAILY [facility] Last Admin: 06/17/18 09:08 Dose: 40 mg Furosemide (Lasix) 40 mg PO DAILY [facility] Last Admin: 06/17/18 09:08 Dose: 40 mg Guaifenesin/Dextromethorphan (Robitussin Dm) 5 ml PO Q4H PRN PRN Reason: Cough Hydrochlorothiazide (Hydrodiuril) 25 mg PO DAILY [facility] Last Admin: 06/17/18 09:09 Dose: 25 mg Ceftriaxone Sodium (Rocephin 1 Gram Ivpb) 1 gm in 100 mls @ 100 mls/hr IVPB DAILY [facility]; Protocol Stop: 06/22/18 20:17 Last Admin: 06/16/18 09:11 Dose: 100 mls/hr Levothyroxine Sodium (Synthroid) 25 mcg PO DAILY [facility] Last Admin: 06/17/18 09:07 Dose: 25 mcg Lorazepam (Ativan) 1 mg PO BID [facility]; Protocol Last Admin: 06/17/18 09:07 Dose: 1 mg Losartan Potassium (Cozaar) 100 mg PO DAILY [facility] Last Admin: 06/17/18 09:07 Dose: 100 mg Metoprolol Tartrate (Lopressor) 25 mg PO BID [facility] Last Admin: 06/17/18 09:07 Dose: 25 mg Nifedipine (Procardia Xl) 90 mg PO DAILY [facility] Last Admin: 06/17/18 09:07 Dose: 90 mg Pantoprazole Sodium (Protonix Ec Tab) 40 mg PO DAILY [facility] Last Admin: 06/17/18 09:08 Dose: 40 mg Warfarin Sodium (Coumadin) 4 mg PO DAILY [facility] Last Admin: 06/15/18 10:03 Dose: 4 mg - Labs Labs: 06/16/18 05:01 06/16/18 05:01 PT 31.3 SECONDS (9.4-12.5) H 06/17/18 09:00 INR 2.77 06/17/18 09:00 APTT 30.0 Seconds (26.9-38.3) 06/10/18 14:40 - Constitutional Appears: Non-toxic, No Acute Distress - Eye Exam Eye Exam: EOMI. absent: Scleral icterus - ENT Exam ENT Exam: Mucous Membranes Moist, Normal Oropharynx - Neck Exam Neck exam: Positive for: Normal Inspection - Respiratory Exam Respiratory Exam: Clear to Auscultation Bilateral. absent: Rales, Rhonchi, Wheezes - Cardiovascular Exam Cardiovascular Exam: Irregular Rhythm, +S1, +S2. absent: RRR - GI/Abdominal Exam GI & Abdominal Exam: Normal Bowel Sounds, Soft. absent: Tenderness - Extremities Exam Extremities exam: osteoarthritic knee changes - Neurological Exam Neurological exam: Alert - Skin Skin Exam: Dry, Warm Assessment and Plan - Assessment and Plan (Free Text) Assessment: 83-year-old male with a past medical history of hypertension, CAD, OA, and atrial fibrillation who originally presented for altered mental status as well as dysuria and frequency in urination. Infectious disease consultation was requested. Plan: Sepsis with leukocytosis and tachycardia secondary to Klebsiella pneumonia urinary tract infection Hypertension A. fib OA Repeat UA looks much better Pending with urine C&S Discussed need to see uro as outpatient, patient verbalized understanding and agreement with this plan Continue ceftriaxone for now Upon discharge patient can be switched to p.o. Vantin 200 mg twice daily for a 5-7 day course We will follow with you Patient was seen and examined and case to be discussed with attending physician Thank you for the pleasure participating in the care of this interesting patient
[2018-06-17] MEDS ORDERED: Potassium Chloride 20 mEq ER Tab PO ONE (17:11)
[2018-06-17] MEDS: cefTRIAXone 1 gm 1 GM/100 ML BAG IVPB SCH (17:33)
--- NOTE | 2018-06-18 07:51 | CP.PCM.PN ---
Subjective - Date & Time of Evaluation Date of Evaluation: 06/18/18 Time of Evaluation: 06:55 - Subjective Subjective: Awake, alert, no distress, feels okay Reason for consultation and follow up: Cardiac evaluation of atrial fibrillation and hypertension, history of chronic atrial fibrillation, on Coumadin, hypertension, hypothyroidism, admitted for altered mental status. Seen and examined by me and Dr. Solano Objective - Vital Signs/Intake and Output Vital Signs (last 24 hours): Temp Pulse Resp BP Pulse Ox 97.6 F 80 20 93/55 L 100 06/17/18 16:57 06/17/18 16:57 06/17/18 16:57 06/17/18 16:57 06/17/18 16:57 Intake and Output: 06/18/18 06/18/18 06:59 18:59 Intake Total 1680 Output Total 750 Balance 930 - Medications Medications: Current Medications Acetaminophen (Tylenol 325mg Tab) 650 mg PO Q6H PRN PRN Reason: Fever >100.4 F Last Admin: 06/17/18 19:46 Dose: 650 mg Acetaminophen (Tylenol 325mg Tab) 650 mg PO DAILY [facility] Last Admin: 06/17/18 13:01 Dose: Not Given Atorvastatin Calcium (Lipitor) 40 mg PO DAILY [facility] Last Admin: 06/17/18 09:08 Dose: 40 mg Furosemide (Lasix) 40 mg PO DAILY [facility] Last Admin: 06/17/18 09:08 Dose: 40 mg Guaifenesin/Dextromethorphan (Robitussin Dm) 5 ml PO Q4H PRN PRN Reason: Cough Hydrochlorothiazide (Hydrodiuril) 25 mg PO DAILY [facility] Last Admin: 06/17/18 09:09 Dose: 25 mg Ceftriaxone Sodium (Rocephin 1 Gram Ivpb) 1 gm in 100 mls @ 100 mls/hr IVPB DAILY [facility]; Protocol Stop: 06/22/18 20:17 Last Admin: 06/17/18 17:33 Dose: 100 mls/hr Levothyroxine Sodium (Synthroid) 25 mcg PO DAILY [facility] Last Admin: 06/17/18 09:07 Dose: 25 mcg Lorazepam (Ativan) 1 mg PO BID [facility]; Protocol Last Admin: 06/17/18 17:33 Dose: 1 mg Losartan Potassium (Cozaar) 100 mg PO DAILY [facility] Last Admin: 06/17/18 09:07 Dose: 100 mg Metoprolol Tartrate (Lopressor) 25 mg PO BID [facility] Last Admin: 06/17/18 18:28 Dose: Not Given Nifedipine (Procardia Xl) 90 mg PO DAILY [facility] Last Admin: 06/17/18 09:07 Dose: 90 mg Pantoprazole Sodium (Protonix Ec Tab) 40 mg PO DAILY [facility] Last Admin: 06/17/18 09:08 Dose: 40 mg Warfarin Sodium (Coumadin) 4 mg PO DAILY [facility] Last Admin: 06/15/18 10:03 Dose: 4 mg - Labs Labs: 06/16/18 05:01 06/16/18 05:01 PT 31.3 SECONDS (9.4-12.5) H 06/17/18 09:00 INR 2.77 06/17/18 09:00 APTT 30.0 Seconds (26.9-38.3) 06/10/18 14:40 - Constitutional Appears: Non-toxic, No Acute Distress - Head Exam Head Exam: NORMAL INSPECTION, NORMOCEPHALIC - Eye Exam Eye Exam: Normal appearance Pupil Exam: NORMAL ACCOMODATION - ENT Exam ENT Exam: Mucous Membranes Moist, Normal Exam - Respiratory Exam Respiratory Exam: Decreased Breath Sounds, Clear to Ausculation Bilateral, NORMAL BREATHING PATTERN - Cardiovascular Exam Cardiovascular Exam: +S1, +S2 - GI/Abdominal Exam GI & Abdominal Exam: Soft, Normal Bowel Sounds - Extremities Exam Extremities Exam: Full ROM - Neurological Exam Neurological Exam: Alert - Psychiatric Exam Psychiatric exam: Normal Affect, Normal Mood - Skin Skin Exam: Dry, Normal Color, Warm Assessment and Plan - Assessment and Plan (Free Text) Assessment: An 83 year old male who came in to the ER due to altered mental status. History of chronic atrial fibrillation, on coumadin, hypertension, hypothyroidism,osteoarthritis, falls,CVA, incontinence. Urine culture positive for Klebsiella Pneumonia. Had episode of rapid atrial fibrillation and Cardizem IV bolus. Orthopaedics on consult for knee pain due to osteoarthritis. Cardiac status stable. Echo done and showed LVEF 52%, moderate aortic regurgitation, mild tricuspid regurgitation. Controlled atrial fibrillation. INR therapeutic on Coumadin. Continue IV antibiotics per ID.Steroid injection on right knee done by Dr. Zuleta. Left knee X ray showed tricompartmental osteoarthritis, possible injection in doctors office. Cardiac status stable. Discharge planning.Ccoumadin resumed. Latest INR 2.77. Plan: Cardiac status stable No distress, awake Heart rate controlled Blood pressure controlled Coumadin resumed On Lipitor 40 mg daily, Lasix 40 mg daily,Hydrodiuril 25 mg daily, Synthroid 25 mcg daily,Cozaar 100 mg daily, Procardia XL 90 mg daily Warfarin Sodium 4 mg daily Continue current management Continue current medications Continue IV antibiotics per ID for UTI Discharge planning Will follow up Plan and treatment discussed with Dr. Solano
[2018-06-18 08:35] LABS: INR 2.37; PROTHROMBIN TIME 26.8 SECONDS (9.4-12.5)
[2018-06-18] MEDS ORDERED: Potassium Chloride 20 mEq ER Tab PO ONE (09:43)
[2018-06-18] MEDS: Pantoprazole 40 mg EC Tab PO SCH (10:26)
[2018-06-18] MEDS: Levothyroxine 25 MCG TAB PO SCH (10:27)
[2018-06-18] MEDS: NIFEdipine 90 mg ER Tab PO SCH (10:27)
[2018-06-18] MEDS: cefTRIAXone 1 gm 1 GM/100 ML BAG IVPB SCH (10:28)
--- NOTE | 2018-06-18 15:27 | CP.PCM.PN ---
<Rajesh Daniel - Last Filed: 06/18/18 15:24> Subjective - Date & Time of Evaluation Date of Evaluation: 06/18/18 Time of Evaluation: 09:45 - Subjective Subjective: Rajesh Daniel D.O. PGY-3, Internal Medicine Resident, Infectious Disease Progress Note 83-year-old male with a past medical history of hypertension, CAD, OA, and atrial fibrillation who originally presented for altered mental status as well a s dysuria and frequency in urination. Infectious disease consultation was requested. Patient was seen and examined at bedside. Pleasant as always. In a good mood. Resting at this time. Objective - Vital Signs/Intake and Output Vital Signs (last 24 hours): Temp Pulse Resp BP Pulse Ox 98.0 F 81 20 136/80 97 06/18/18 06:00 06/18/18 10:27 06/18/18 06:00 06/18/18 10:27 06/18/18 06:00 Intake and Output: 06/18/18 06/18/18 06:59 18:59 Intake Total 1680 Output Total 750 Balance 930 - Medications Medications: Current Medications Acetaminophen (Tylenol 325mg Tab) 650 mg PO Q6H PRN PRN Reason: Fever >100.4 F Last Admin: 06/17/18 19:46 Dose: 650 mg Acetaminophen (Tylenol 325mg Tab) 650 mg PO DAILY [facility] Last Admin: 06/18/18 10:27 Dose: 650 mg Atorvastatin Calcium (Lipitor) 40 mg PO DAILY [facility] Last Admin: 06/18/18 10:26 Dose: 40 mg Furosemide (Lasix) 40 mg PO DAILY [facility] Last Admin: 06/18/18 10:27 Dose: 40 mg Guaifenesin/Dextromethorphan (Robitussin Dm) 5 ml PO Q4H PRN PRN Reason: Cough Hydrochlorothiazide (Hydrodiuril) 25 mg PO DAILY [facility] Last Admin: 06/18/18 10:26 Dose: 25 mg Ceftriaxone Sodium (Rocephin 1 Gram Ivpb) 1 gm in 100 mls @ 100 mls/hr IVPB DAILY [facility]; Protocol Stop: 06/22/18 20:17 Last Admin: 06/18/18 10:28 Dose: 100 mls/hr Levothyroxine Sodium (Synthroid) 25 mcg PO DAILY [facility] Last Admin: 04/05/19 10:27 Dose: 25 mcg Lorazepam (Ativan) 1 mg PO BID [facility]; Protocol Last Admin: 06/18/18 10:26 Dose: 1 mg Losartan Potassium (Cozaar) 100 mg PO DAILY [facility] Last Admin: 06/18/18 10:27 Dose: 100 mg Metoprolol Tartrate (Lopressor) 25 mg PO BID [facility] Last Admin: 06/18/18 10:27 Dose: 25 mg Nifedipine (Procardia Xl) 90 mg PO DAILY [facility] Last Admin: 06/18/18 10:27 Dose: 90 mg Pantoprazole Sodium (Protonix Ec Tab) 40 mg PO DAILY [facility] Last Admin: 06/18/18 10:26 Dose: 40 mg Warfarin Sodium (Coumadin) 2 mg PO 1800 [facility]; Protocol - Labs Labs: 06/16/18 05:01 06/16/18 05:01 PT 26.8 SECONDS (9.4-12.5) H 06/18/18 08:15 INR 2.37 06/18/18 08:15 APTT 30.0 Seconds (26.9-38.3) 06/10/18 14:40 - Constitutional Appears: Non-toxic, No Acute Distress - Eye Exam Eye Exam: EOMI. absent: Scleral icterus - ENT Exam ENT Exam: Mucous Membranes Moist, Normal Oropharynx - Neck Exam Neck exam: Positive for: Normal Inspection - Respiratory Exam Respiratory Exam: Clear to Auscultation Bilateral. absent: Rales, Rhonchi, Wheezes - Cardiovascular Exam Cardiovascular Exam: Irregular Rhythm, +S1, +S2. absent: RRR - GI/Abdominal Exam GI & Abdominal Exam: Normal Bowel Sounds, Soft. absent: Tenderness - Extremities Exam Extremities exam: osteoarthritic knee changes BL - Neurological Exam Neurological exam: Alert, Awake, nonfocal - Skin Skin Exam: Dry, Warm Assessment and Plan - Assessment and Plan (Free Text) Assessment: 83-year-old male with a past medical history of hypertension, CAD, OA, and atrial fibrillation who originally presented for altered mental status as well as dysuria and frequency in urination. Infectious disease consultation was requested. Plan: Sepsis secondary to Klebsiella pneumonia urinary tract infection Hypertension A. fib OA Repeat urine C&S negative BCx negative 2/2 day 5 Continue ceftriaxone day 4 F/U with uro outpt Upon discharge patient can be switched to p.o. Vantin 200 mg twice daily for a 5-7 day course We will follow alongside you Patient was seen and examined and case to be discussed with attending physician Thank you for the pleasure participating in the care of this interesting patient <RiaJared - Last Filed: 06/18/18 16:49> Objective - Vital Signs/Intake and Output Vital Signs (last 24 hours): Temp Pulse Resp BP Pulse Ox 98.0 F 81 20 136/80 97 06/18/18 06:00 06/18/18 10:27 06/18/18 06:00 06/18/18 10:27 06/18/18 06:00 Intake and Output: 06/18/18 06/18/18 06:59 18:59 Intake Total 1680 Output Total 750 Balance 930 - Medications Medications: Current Medications Acetaminophen (Tylenol 325mg Tab) 650 mg PO Q6H PRN PRN Reason: Fever >100.4 F Last Admin: 06/17/18 19:46 Dose: 650 mg Acetaminophen (Tylenol 325mg Tab) 650 mg PO DAILY [facility] Last Admin: 06/18/18 10:27 Dose: 650 mg Atorvastatin Calcium (Lipitor) 40 mg PO DAILY [facility] Last Admin: 06/18/18 10:26 Dose: 40 mg Furosemide (Lasix) 40 mg PO DAILY [facility] Last Admin: 06/18/18 10:27 Dose: 40 mg Guaifenesin/Dextromethorphan (Robitussin Dm) 5 ml PO Q4H PRN PRN Reason: Cough Hydrochlorothiazide (Hydrodiuril) 25 mg PO DAILY [facility] Last Admin: 06/18/18 10:26 Dose: 25 mg Ceftriaxone Sodium (Rocephin 1 Gram Ivpb) 1 gm in 100 mls @ 100 mls/hr IVPB DAILY [facility]; Protocol Stop: 06/22/18 20:17 Last Admin: 06/18/18 10:28 Dose: 100 mls/hr Levothyroxine Sodium (Synthroid) 25 mcg PO DAILY [facility] Last Admin: 06/18/18 10:27 Dose: 25 mcg Lorazepam (Ativan) 1 mg PO BID [facility]; Protocol Last Admin: 06/18/18 10:26 Dose: 1 mg Losartan Potassium (Cozaar) 100 mg PO DAILY [facility] Last Admin: 06/18/18 10:27 Dose: 100 mg Metoprolol Tartrate (Lopressor) 25 mg PO BID [facility] Last Admin: 06/18/18 10:27 Dose: 25 mg Nifedipine (Procardia Xl) 90 mg PO DAILY [facility] Last Admin: 06/18/18 10:27 Dose: 90 mg Pantoprazole Sodium (Protonix Ec Tab) 40 mg PO DAILY [facility] Last Admin: 06/18/18 10:26 Dose: 40 mg Warfarin Sodium (Coumadin) 2 mg PO 1800 [facility]; Protocol - Labs Labs: 06/16/18 05:01 06/16/18 05:01 PT 26.8 SECONDS (9.4-12.5) H 06/18/18 08:15 INR 2.37 06/18/18 08:15 APTT 30.0 Seconds (26.9-38.3) 06/10/18 14:40 Attending/Attestation - Attestation I have personally seen and examined this patient.: Yes I have fully participated in the care of the patient.: Yes I have reviewed all pertinent clinical information, including history, physical exam and plan: Yes
--- NOTE | 2018-06-19 00:33 | PN ---
DATE: 06/17/2018 SUBJECTIVE: The patient was seen this morning in room 372, bed 2, sitting out of bed, resting comfortably in a chair, in good spirits, looking forward to talk to me. He reports no new symptoms, feels better. He is working with physical therapy, understands he is on the antibiotics as we look for discharge plans. ASSESSMENT AND PLAN: Case was discussed with the social services counselor and case management. The patient is not eligible for transitional care unit. The family does not want looking at other facilities. Continuing antibiotics for urinary tract infections. Discussed with Dr. Rollins about intravenous Rocephin versus p.o. Cipro. We will continue IV Rocephin for now and continue working on physical therapy and discharge plan. Patrick Gunter MD [facility]
[2018-06-19 05:49] LABS: BASO # 0.03 K/mm3 (0.0-2.0); BASO % 0.3 % (0.0-3.0); EOS # 0.2 (0.0-0.7); EOS % 1.7 % (1.5-5.0); HEMOGLOBIN 14.5 g/dL (14.0-18.0); LYMPH # 2.6 (1.2-3.4); LYMPH % 28.3 % (22.0-35.0); MEAN CELL VOLUME 89.7 fl (80.0-105.0); MEAN CORPUSCULAR HEMOGLOBIN 29.4 pg (25.0-35.0); MEAN CORPUSCULAR HGB CONC 32.7 g/dl (31.0-37.0); MEAN PLATELET VOLUME 9.2 fl (7.0-11.0); MONO # 0.9 (0.1-0.6); MONO % 9.6 % (1.0-6.0); RBC 4.94 10^6/uL (3.5-6.1); RED CELL DISTRIBUTION WIDTH 15.1 % (11.5-14.5); WHITE BLOOD COUNT 9.3 10^3/uL (4.5-11.0)
[2018-06-19 06:03] LABS: BLOOD UREA NITROGEN 44 mg/dL (7-21); GFR NON-AFRICAN AMERICAN > 60
[2018-06-19 08:29] VITALS: TEMP 98
--- NOTE | 2018-06-19 09:14 | CP.PCM.PN ---
Subjective - Date & Time of Evaluation Date of Evaluation: 06/19/18 Time of Evaluation: 07:05 - Subjective Subjective: Lying in bed, awake, alert, no distress Reason for consultation and follow up: Cardiac evaluation of atrial fibrillation and hypertension, history of chronic atrial fibrillation, on Coumadin, hypertension, hypothyroidism, admitted for altered mental status. Seen and examined by me and Dr. Lowery Objective - Vital Signs/Intake and Output Vital Signs (last 24 hours): Temp Pulse Resp BP Pulse Ox 98 F 71 20 116/65 95 06/19/18 08:29 06/19/18 08:29 06/19/18 08:29 06/19/18 08:29 06/19/18 08:29 Intake and Output: 06/19/18 06/19/18 06:59 18:59 Intake Total 1920 Output Total 1250 Balance 670 - Medications Medications: Current Medications Acetaminophen (Tylenol 325mg Tab) 650 mg PO Q6H PRN PRN Reason: Fever >100.4 F Last Admin: 06/17/18 19:46 Dose: 650 mg Acetaminophen (Tylenol 325mg Tab) 650 mg PO DAILY [facility] Last Admin: 06/18/18 10:27 Dose: 650 mg Atorvastatin Calcium (Lipitor) 40 mg PO DAILY [facility] Last Admin: 06/18/18 10:26 Dose: 40 mg Furosemide (Lasix) 40 mg PO DAILY [facility] Last Admin: 06/18/18 10:27 Dose: 40 mg Guaifenesin/Dextromethorphan (Robitussin Dm) 5 ml PO Q4H PRN PRN Reason: Cough Hydrochlorothiazide (Hydrodiuril) 25 mg PO DAILY [facility] Last Admin: 06/18/18 10:26 Dose: 25 mg Ceftriaxone Sodium (Rocephin 1 Gram Ivpb) 1 gm in 100 mls @ 100 mls/hr IVPB DAILY [facility]; Protocol Stop: 06/22/18 20:17 Last Admin: 06/18/18 10:28 Dose: 100 mls/hr Levothyroxine Sodium (Synthroid) 25 mcg PO DAILY [facility] Last Admin: 06/18/18 10:27 Dose: 25 mcg Lorazepam (Ativan) 1 mg PO BID [facility]; Protocol Last Admin: 06/18/18 18:05 Dose: 1 mg Losartan Potassium (Cozaar) 100 mg PO DAILY [facility] Last Admin: 06/18/18 10:27 Dose: 100 mg Metoprolol Tartrate (Lopressor) 25 mg PO BID [facility] Last Admin: 06/18/18 18:05 Dose: 25 mg Nifedipine (Procardia Xl) 90 mg PO DAILY [facility] Last Admin: 06/18/18 10:27 Dose: 90 mg Pantoprazole Sodium (Protonix Ec Tab) 40 mg PO DAILY [facility] Last Admin: 06/18/18 10:26 Dose: 40 mg Warfarin Sodium (Coumadin) 2 mg PO 1800 [facility]; Protocol Last Admin: 06/18/18 18:06 Dose: 2 mg - Labs Labs: 06/19/18 05:30 06/19/18 05:30 PT 26.8 SECONDS (9.4-12.5) H 06/18/18 08:15 INR 2.37 06/18/18 08:15 APTT 30.0 Seconds (26.9-38.3) 06/10/18 14:40 - Constitutional Appears: Non-toxic, No Acute Distress - Head Exam Head Exam: NORMAL INSPECTION, NORMOCEPHALIC - Eye Exam Eye Exam: Normal appearance Pupil Exam: NORMAL ACCOMODATION - ENT Exam ENT Exam: Mucous Membranes Moist, Normal Exam - Respiratory Exam Respiratory Exam: Decreased Breath Sounds, Clear to Ausculation Bilateral, NORMAL BREATHING PATTERN - Cardiovascular Exam Cardiovascular Exam: +S1, +S2 - GI/Abdominal Exam GI & Abdominal Exam: Soft, Normal Bowel Sounds - Neurological Exam Neurological Exam: Alert, Awake - Psychiatric Exam Psychiatric exam: Normal Affect, Normal Mood - Skin Skin Exam: Dry, Normal Color Assessment and Plan - Assessment and Plan (Free Text) Assessment: An 83 year old male who came in to the ER due to altered mental status. History of chronic atrial fibrillation, on coumadin, hypertension, hypothyroidism,oste oarthritis, falls,CVA, incontinence. Urine culture positive for Klebsiella Pneumonia. Had episode of rapid atrial fibrillation and Cardizem IV bolus. Orthopaedics on consult for knee pain due to osteoarthritis. Echo done and showed LVEF 52%, moderate aortic regurgitation, mild tricuspid regurgitation. Controlled atrial fibrillation. on Coumadin. Continue IV antibiotics per ID. Steroid injection on right knee done by Dr. Zuleta. Left knee X ray showed tricompartmental osteoarthritis, possible injection in doctors office. Cardiac status stable. On IV antibiotics for urinary tract infection. ID on consult. Cardiac status stable. Discharge planning. Plan: Cardiac status stable No distress, awake Heart rate controlled Blood pressure controlled On Lipitor 40 mg daily, Lasix 40 mg daily,Hydrodiuril 25 mg daily, Synthroid 25 mcg daily,Cozaar 100 mg daily, Procardia XL 90 mg daily Warfarin Sodium 4 mg daily Continue current management Continue current medications On IV antibiotics for urinary tract infection. ID on consult. Discharge planning Will follow up Plan and treatment discussed with Dr. Lowery
[2018-06-19] MEDS: NIFEdipine 90 mg ER Tab PO SCH (10:06)
[2018-06-19] MEDS: cefTRIAXone 1 gm 1 GM/100 ML BAG IVPB SCH (10:07)
[2018-06-19] MEDS: Pantoprazole 40 mg EC Tab PO SCH (10:07)
[2018-06-19] MEDS: Levothyroxine 25 MCG TAB PO SCH (10:07)
--- NOTE | 2018-06-19 12:23 | CP.PCM.PN ---
Subjective - Date & Time of Evaluation Date of Evaluation: 06/19/18 Time of Evaluation: 10:20 - Subjective Subjective: Comfortable on a chair, no abdominal pain, no dysuria. Objective - Vital Signs/Intake and Output Vital Signs (last 24 hours): Temp Pulse Resp BP Pulse Ox 98 F 71 20 116/65 95 06/19/18 08:29 06/19/18 08:29 06/19/18 08:29 06/19/18 08:29 06/19/18 08:29 Intake and Output: 06/19/18 06/19/18 06:59 18:59 Intake Total 1920 Output Total 1250 Balance 670 - Medications Medications: Current Medications Acetaminophen (Tylenol 325mg Tab) 650 mg PO Q6H PRN PRN Reason: Fever >100.4 F Last Admin: 06/17/18 19:46 Dose: 650 mg Acetaminophen (Tylenol 325mg Tab) 650 mg PO DAILY [facility] Last Admin: 06/18/18 10:27 Dose: 650 mg Atorvastatin Calcium (Lipitor) 40 mg PO DAILY [facility] Last Admin: 06/18/18 10:26 Dose: 40 mg Furosemide (Lasix) 40 mg PO DAILY [facility] Last Admin: 06/18/18 10:27 Dose: 40 mg Guaifenesin/Dextromethorphan (Robitussin Dm) 5 ml PO Q4H PRN PRN Reason: Cough Hydrochlorothiazide (Hydrodiuril) 25 mg PO DAILY [facility] Last Admin: 06/18/18 10:26 Dose: 25 mg Ceftriaxone Sodium (Rocephin 1 Gram Ivpb) 1 gm in 100 mls @ 100 mls/hr IVPB DAILY [facility]; Protocol Stop: 06/22/18 20:17 Last Admin: 06/18/18 10:28 Dose: 100 mls/hr Levothyroxine Sodium (Synthroid) 25 mcg PO DAILY [facility] Last Admin: 06/18/18 10:27 Dose: 25 mcg Lorazepam (Ativan) 1 mg PO BID [facility]; Protocol Last Admin: 06/18/18 18:05 Dose: 1 mg Losartan Potassium (Cozaar) 100 mg PO DAILY [facility] Last Admin: 06/18/18 10:27 Dose: 100 mg Metoprolol Tartrate (Lopressor) 25 mg PO BID [facility] Last Admin: 06/18/18 18:05 Dose: 25 mg Nifedipine (Procardia Xl) 90 mg PO DAILY [facility] Last Admin: 06/18/18 10:27 Dose: 90 mg Pantoprazole Sodium (Protonix Ec Tab) 40 mg PO DAILY [facility] Last Admin: 06/18/18 10:26 Dose: 40 mg Warfarin Sodium (Coumadin) 2 mg PO 1800 [facility]; Protocol Last Admin: 06/18/18 18:06 Dose: 2 mg - Labs Labs: 06/19/18 05:30 06/19/18 05:30 PT 26.8 SECONDS (9.4-12.5) H 06/18/18 08:15 INR 2.37 06/18/18 08:15 APTT 30.0 Seconds (26.9-38.3) 06/10/18 14:40 - Constitutional Appears: Chronically Ill - Head Exam Head Exam: NORMAL INSPECTION - ENT Exam ENT Exam: Mucous Membranes Moist - Neck Exam Neck Exam: absent: Meningismus - Respiratory Exam Respiratory Exam: Decreased Breath Sounds - Cardiovascular Exam Cardiovascular Exam: +S1, +S2 - GI/Abdominal Exam GI & Abdominal Exam: Soft. absent: Tenderness Assessment and Plan - Assessment and Plan (Free Text) Plan: Assessment sepsis due to Klebsiella UTI HTN CAD osteoarthritis atrial fibrillation Plan continue Rocephin day 5; when ready to be discharged, he can be switched to PO Vantin for another 5-7 days
[2018-06-19 16:46] VITALS: BP 110/60; PULSE 70; RESP 18; O2SAT 96
--- NOTE | 2018-06-19 21:47 | DS ---
HOSPITAL COURSE: This 83-year-old man who came to the emergency room with altered mental status, confusion, found to be related to urinary tract infection. He was admitted to medical floor followed by Infectious Disease and Dr. Osorio Gunter who know him well. With the antibiotics, his infection cleared nicely. His mental status came to baseline. There was some difficulty with ambulation, so physical therapy advised Transitional Care or Subacute Rehab, unfortunately his insurance did not allow for him to come to our Transitional Care Unit. Family had resisted and refused [facility], so intravenous antibiotics continued in our Acute Care Facility, physical therapy continued and we searched for outpatient services which were ultimately refused and the patient was readied for discharge to home. On ambulating the patient today, Thursday, the day of discharge, I notice a little bit of shuffling gait and perhaps some cogwheel rigidity in upper extremities, so trial of Sinemet 10/100 was given. Will follow us as an outpatient and see if he would benefit as there could be beginnings of early Parkinson. He was discharged to home. Follow up us in the office in one week. FINAL DISCHARGE DIAGNOSES: 1. Urinary tract infection - Klebsiella- sepsis by AMS, leukocytosis, and tachycardia. 2. Altered mental status. 3. Hypertension. 4. 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 Patrick Gunter MD [facility]ENTER[facility]
--- NOTE | 2018-06-21 07:41 | PN ---
DATE: 06/19/2018 FOLLOWUP ORTHOPEDIC CONSULT SUBJECTIVE: I saw the patient for osteoarthritis of both knees, right worse than left and both of them were injected with Depo-Medrol and Marcaine. He feels much better today and he is able to walk better with physical therapy. He is not a surgical candidate for total knees because he does not have the ability to comprehend the complexity of a total knee and would require tremendous amount of physical therapy. There is a high chance that the risk of surgery would outweigh the benefits, so we will just do physical therapy and I could see him in the office for the injections of either Depo-Medrol or Marcaine if he needs them again or the Hyalgan injections for more longer lasting pain relief. So, once he goes home, the family could bring him to my office and I can follow him as an outpatient. FINAL DIAGNOSIS: Bilateral knee osteoarthritis, right worse than the left, helped with the Depo-Medrol injection. Osorio Zuleta DO
--- NOTE | 2018-06-21 09:10 | PN ---
DATE: 06/18/2018 SUBJECTIVE: The patient is on the third floor today, room 27, bed 2, continuing IV antibiotics for urinary tract infection. He remains comfortable, in no acute distress. PHYSICAL EXAMINATION VITAL SIGNS: Stable. ASSESSMENT AND PLAN: We will need to check with Infectious Disease in the next day or two for a good time to change to p.o.'s and discharge planning since he will most likely be headed home as he is not a candidate for transitional care unit and does not want to go to an [facility] facility. So we will continue physical therapy on the floors and discharge plan soon. Patrick Gunter MD
--- NOTE | 2018-06-23 15:23 | PQF ---
PROVIDER RESPONSE TEXT: Agree. SEe d/c summary REVIEWER QUERY TEXT: Conflicting Documentation Clarification A single mention or documentation of multiple diagnoses for the same clinical presentation appears in the record. Please clarify the diagnosis/diagnoses. Please also document if the condition is: -- Confirmed and current -- Confirmed, treated and resolved -- Ruled out -- Other, please specify The patient's Clinical Indicators include: "Sepsis with leukocytosis and tachycardia secondary to K. pneumonia urinary tract infection" document ed on consult of 06/16 and progress of 06/17, 06/18, 06/19. You do not document this dx. on your discharge [facility]. Do you agree, disagree, other, undetermined with systemic sepsis? Thank you. Query created by: Nikole Weinberg on 06/21/2018 9:13 AM Electronically signed by: Patrick Gunter MD 06/23/2018 3:20 PM
== END 2018-06-19 18:58 | disposition home health service (06) | DRG 872 ==
LOC: ED 13:04 → ERH 21:12 → 2RNO 06-11 → 3RSO 06-15 15:48
PROVIDERS: ADMIT Internal Medicine; ATTEND Internal Medicine
DX: A41.9 Sepsis, unspecified organism (principal); N39.0 Urinary tract infection, site not specified; R41.82 Altered mental status, unspecified; M79.604 Pain in right leg; I10 Essential (primary) hypertension; M25.561 Pain in right knee; R29.6 Repeated falls; I48.2 Chronic atrial fibrillation; I25.10 Atherosclerotic heart disease of native coronary artery without angina pectoris; M17.0 Bilateral primary osteoarthritis of knee; Z79.01 Long term (current) use of anticoagulants; Z86.73 Personal history of transient ischemic attack (TIA), and cerebral infarction without residual deficits; E03.9 Hypothyroidism, unspecified; N41.9 Inflammatory disease of prostate, unspecified; R79.1 Abnormal coagulation profile; Z79.890 Hormone replacement therapy; Z91.81 History of falling; Z96.641 Presence of right artificial hip joint; I08.2 Rheumatic disorders of both aortic and tricuspid valves

== ENCOUNTER 2018-07-12 08:26 | Inpatient (IN) | payer MEDICARE, OTHER ==
[2018-07-12 08:29] VITALS: BMI 24.3
--- NOTE | 2018-07-12 09:12 | ED PDOC ---
Arrival/HPI - General Chief Complaint: Altered Mental Status Time Seen by Provider: 07/12/18 08:27 Historian: Patient (poor historian) - History of Present Illness Narrative History of Present Illness (Text): 07/12/18 08:27 Curry Segundo is an 83 year old male, with a past medical history of Hypertension, CABG, back surgery, Right hip replacement, shoulder surgery, and atrial fibrillation, bib EMS for altered mental status since 2 days. Per family, patient has been depressed secondary due to recent in his family. Patient was admitted for similar complaints on 06/10/18. Patient lives at home. Patient also notes secondary complaint of right knee pain but denies fall or trauma. Patient denies any chest pain, shortness of breath, abdominal pain, fevers, chills, headache, or any other complaint. PMD - Dr. Gunter Time/Duration: < week Symptom Onset: Sudden Symptom Course: Unchanged Activities at Onset: Light Context: Home Past Medical History - Provider Review Nursing Documentation Reviewed: Yes - Cardiac Hx Cardiac Disorders: Yes (CAD, AFIB) Hx Hypertension: Yes - Pulmonary Hx Respiratory Disorders: No - Neurological HX Cerebrovascular Accident: Yes - HEENT Hx HEENT Disorder: Yes Hx Cataracts: Yes - Renal Hx Renal Disorder: No - Endocrine/Metabolic Hx Endocrine Disorders: No - Hematological/Oncological Hx Blood Disorders: No - Integumentary Hx Dermatological Disorder: Yes - Musculoskeletal/Rheumatological Hx Arthritis: Yes - Gastrointestinal Hx Gastrointestinal Disorders: Yes (INCONTINENT) - Genitourinary/Gynecological Hx Genitourinary Disorders: Yes Hx Incontinence: Yes - Psychiatric Hx Psychophysiologic Disorder: Yes Hx Anxiety: Yes Hx Substance Use: No - Surgical History Hx Open Heart Surgery: Yes Other/Comment: shoulder ,back surgery,rt hip replacement - Anesthesia Hx Anesthesia: Yes Hx Anesthesia Reactions: No Hx Malignant Hyperthermia: No Family/Social History - Physician Review Nursing Documentation Reviewed: Yes Family/Social History: Unknown Family HX Smoking Status: Unknown If Ever Smoked Hx Alcohol Use: No Hx Substance Use: No Allergies/Home Meds Allergies/Adverse Reactions: Allergies No Known Allergies Allergy (Verified 07/12/18 11:32) Home Medications: Home Meds Medication Instructions Recorded Confirmed Acetaminophen with Codeine 1 tab PO Q8 PRN 04/16/18 07/12/18 [Tylenol with Codeine #3 Tablet] Atorvastatin [Lipitor] 40 mg PO DAILY 04/16/18 07/12/18 Furosemide [Lasix] 40 mg PO DAILY 04/16/18 07/12/18 Levothyroxine [Synthroid] 25 mcg PO DAILY 04/16/18 07/12/18 Lorazepam [Ativan] 1 mg PO BID 04/16/18 07/12/18 Losartan/Hydrochlorothiazide 1 tab PO DAILY 04/16/18 07/12/18 [Losartan-Hctz 100-25 mg Tab] Metoprolol Tartrate [Lopressor] 25 mg PO BID 04/16/18 07/12/18 NIFEdipine ER [Procardia XL] 90 mg PO DAILY 04/16/18 07/12/18 Omeprazole 40 mg PO DAILY 04/16/18 07/12/18 Warfarin [Coumadin] 4 mg PO DAILY 04/16/18 07/12/18 traMADol [Ultram] 50 mg PO Q6 PRN 04/16/18 07/12/18 Review of Systems - Physician Review All systems were reviewed & negative as marked: Yes - Review of Systems Constitutional: absent: Fevers, Other (chills) Respiratory: absent: SOB Cardiovascular: absent: Chest Pain Gastrointestinal: absent: Abdominal Pain Musculoskeletal: absent: Other (fall / trauma) Neurological: absent: Headache Physical Exam Vital Signs Reviewed: Yes Vital Signs Temp Pulse Resp BP Pulse Ox 07/12/18 08:29 98.1 F 84 18 100/65 99 Temperature: Afebrile Blood Pressure: Normal Pulse: Regular Respiratory Rate: Normal Appearance: Positive for: Well-Appearing, Non-Toxic, Comfortable Pain Distress: None Mental Status: Positive for: other (alert and awake) Finger Stick Blood Glucose: 149 - Systems Exam Head: Present: Atraumatic, Normocephalic Pupils: Present: PERRL Extroacular Muscles: Present: EOMI Conjunctiva: Present: Normal Mouth: Present: Moist Mucous Membranes Neck: Present: Normal Range of Motion Respiratory/Chest: Present: Clear to Auscultation, Good Air Exchange. No: Respiratory Distress, Accessory Muscle Use, Wheezes, Rales, Rhonchi Cardiovascular: Present: Regular Rate and Rhythm, Normal S1, S2. No: Murmurs, Rub, Gallop Abdomen: Present: Normal Bowel Sounds. No: Tenderness, Distention, Peritoneal Signs, Rebound, Guarding Back: Present: Normal Inspection Upper Extremity: Present: Normal Inspection, Neurovascularly Intact, Capillary Refill < 2s. No: Cyanosis, Edema, Deformity Lower Extremity: Present: Normal Inspection, Neurovascularly Intact, Capillary Refill < 2 s. No: Edema, Deformity Neurological: Present: GCS=15, CN II-XII Intact, Speech Normal, Motor Func Grossly Intact Skin: Present: Warm, Dry, Normal Color. No: Rashes Psychiatric: Present: Alert, Normal Insight, Normal Concentration, Other (responds to yes or no questions). No: Oriented x 3 Medical Decision Making ED Course and Treatment: 07/12/18 08:27 Impression: Patient is an 83 year old female, with a past medical history of hypertension, CABG, back surgery, right hip replacement, shoulder surgery, and a-fib on coumadin, bib EMS for altered mental status since a couple days. Per family, patient has been depressed since recent in family. Appreciates history of similar complaints on 06/10/18 and was admitted to [facility]. Patient also notes secondary complaint of right knee pain. Denies fall / trauma, fevers, chills, chest pain, shortness of breath, abdominal pain, headache. On exam; patient is alert and awake but not oriented x 3. Is able to respond to yes and no questions. Upper and lower extremities neurovascularly intact. Otherwise unremarkable. Plan: -- Labs -- CT Head w/o Contrast -- EKG -- Glucose POC -- Right Knee X-Ray 2V -- Urinalysis -- Reassess and disposition Prior Visits: Notes and results from previous visits were reviewed. Progress Notes: 07/12/18 10:23 I spoke to his daughter in law, Adriana, who is the one called the EMS and she states he's been more confused then his usual self now for 2 days and he just doesn't get up at all from bed. She says since his son in January he's been getting. 07/12/18 11:[address] Gunter, PMD, who will place him on observation. Daughter is aware he will be admitted. - RAD Interpretation Narrative RAD Interpretations (Text): 07/12/18 10:03 CT Head w/o contrast shows: IMPRESSION: No intracranial mass, hemorrhage or evidence of acute infarct. Mild chronic white matter ischemic change. Age appropriate atrophy. 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 No change from prior CT examination. 07/12/18 10:24 Chest X-Ray shows: IMPRESSION: No active disease. 07/12/18 10:26 Right Knee X-Ray shows: IMPRESSION: Tricompartmental osteoarthritis. Otherwise unremarkable. Radiology Orders: 07/12/18 08:58 HEAD W/O CONTRAST [CT] Stat CHEST PORTABLE [RAD] Stat 07/12/18 08:59 KNEE RIGHT 2 VIEWS (AP & LAT) [RAD] Stat Insulation Extruder Operator: Radiologist - EKG Interpretation EKG Interpretation (Text): 07/12/18 09:10 Reviewed EKG, shows: A-fib at 81 BPM. Normal Intervals. No ST elevations. Interpreted by ED Physician: Yes Type: 12 lead EKG - Scribe Statement The provider has reviewed the documentation as recorded by the Scribe Yvon Ruiz All medical record entries made by the Scribe were at my direction and personally dictated by me. I have reviewed the chart and agree that the record accurately reflects my personal performance of the history, physical exam, medical decision making, and the department course for this patient. I have also personally directed, reviewed, and agree with the discharge instructions and disposition. Disposition/Present on Arrival - Present on Arrival Any Indicators Present on Arrival: No History of DVT/PE: No History of Uncontrolled Diabetes: No Urinary Catheter: No History of Decub. Ulcer: No History Surgical Site Infection Following: None - Disposition Have Diagnosis and Disposition been Completed?: Yes Diagnosis: Altered mental state Disposition: HOSPITALIZED Disposition Time: 11:00 Patient Plan: Observation Condition: FAIR
[2018-07-12 09:14] LABS: VENOUS BLOOD GAS BASE EXCESS 6.9 mmol/L (0.0-2.0); VENOUS BLOOD GAS PO2 32 mm/Hg (30-55); VENOUS BLOOD PH 7.45 (7.32-7.43)
[2018-07-12 10:03] LABS: BASO # 0.01 K/mm3 (0.0-2.0); BASO % 0.1 % (0.0-3.0); EOS # 0.2 (0.0-0.7); EOS % 1.6 % (1.5-5.0); LYMPH # 1.8 (1.2-3.4); LYMPH % 17.8 % (22.0-35.0); MEAN CELL VOLUME 89.9 fl (80.0-105.0); MEAN CORPUSCULAR HEMOGLOBIN 29.5 pg (25.0-35.0); MEAN CORPUSCULAR HGB CONC 32.9 g/dl (31.0-37.0); MEAN PLATELET VOLUME 9.5 fl (7.0-11.0); MONO # 1.1 (0.1-0.6); MONO % 10.9 % (1.0-6.0); RBC 4.74 10^6/uL (3.5-6.1); RED CELL DISTRIBUTION WIDTH 14.7 % (11.5-14.5); WHITE BLOOD COUNT 9.9 10^3/uL (4.5-11.0)
--- NOTE | 2018-07-12 10:07 | CT ---
Date of service: 07/12/2018 PROCEDURE: CT HEAD WITHOUT CONTRAST. HISTORY: ams COMPARISON: None available. TECHNIQUE: Axial computed tomography images were obtained through the head/brain without intravenous contrast. Radiation dose: Total exam DLP = 1042.9 mGy-cm. This CT exam was performed using one or more of the following dose reduction techniques: Automated exposure control, adjustment of the mA and/or kV according to patient size, and/or use of iterative reconstruction technique. FINDINGS: HEMORRHAGE: No intracranial hemorrhage. BRAIN: No mass effect or edema. Mild age-appropriate diffuse atrophy. There is old anterior right temporal encephalomalacia. No evidence of acute infarct. Minimal periventricular white matter lucency consistent with chronic microvascular ischemic change. VENTRICLES: Mild dilatation of the body of the right lateral ventricle Possibly secondary to old temporal encephalomalacia. No generalized hydrocephalus. No midline shift. CALVARIUM: Unremarkable. PARANASAL SINUSES: Unremarkable as visualized. No significant inflammatory changes. MASTOID AIR CELLS: Unremarkable as visualized. No inflammatory changes. OTHER FINDINGS: None. IMPRESSION: No intracranial mass, hemorrhage or evidence of acute infarct. Mild chronic white matter ischemic change. Age appropriate atrophy. 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 No change from prior CT examination.
[2018-07-12 10:13] LABS: INR 2.82; PARTIAL THROMBOPLASTIN TIME 39.5 Seconds (26.9-38.3); PROTHROMBIN TIME 31.9 SECONDS (9.4-12.5)
[2018-07-12 10:28] LABS: ALBUMIN 3.6 g/dL (3.0-4.8); ALT/SGPT 12 U/L (7-56); AST/SGOT 35 U/L (17-59); BLOOD UREA NITROGEN 35 mg/dL (7-21); CALCIUM 9.3 mg/dL (8.4-10.5); GFR NON-AFRICAN AMERICAN 58
--- NOTE | 2018-07-12 10:28 | RAD ---
Date of service: 07/12/2018 HISTORY: Sepsis Patient COMPARISON: 06/10/2018 TECHNIQUE: 1 view obtained. FINDINGS: LUNGS: No active pulmonary disease. PLEURA: No significant pleural effusion identified, no pneumothorax apparent. CARDIOVASCULAR: No aortic atherosclerotic calcification present. Normal heart size. Sternotomy wires. No pulmonary vascular congestion. OSSEOUS STRUCTURES: No significant abnormalities. VISUALIZED UPPER ABDOMEN: Normal. OTHER FINDINGS: None. IMPRESSION: No active disease.
--- NOTE | 2018-07-12 10:29 | RAD ---
Date of service: 07/12/2018 PROCEDURE: Right Knee Radiographs. HISTORY: knee pain, no trauma COMPARISON: None. TECHNIQUE: 2 views obtained. FINDINGS: BONES: Normal. No fracture. JOINTS: Tricompartmental osteoarthritis. No articular erosions. JOINT EFFUSION: None. OTHER FINDINGS: None. IMPRESSION: Tricompartmental osteoarthritis. Otherwise unremarkable.
[2018-07-12] MEDS ORDERED: Potassium Chloride 20 mEq ER Tab PO STA (10:35)
[2018-07-12] MEDS ORDERED: Pneumococcal 23-Valent Vaccine IM ONE (12:43)
[2018-07-12 14:16] LABS: PH,URINE 6.5 (4.7-8.0); URINE BILIRUBIN NEGATIVE (NEGATIVE); URINE BLOOD NEGATIVE (NEGATIVE); URINE GLUCOSE (UA) NEGATIVE (NEGATIVE); URINE LEUKOCYTE ESTERASE NEGATIVE Leu/uL (NEGATIVE); URINE PROTEIN NEGATIVE mg/dL (<30 mg/dL); URINE UROBILINOGEN 0.2 E.U./dL (<1 E.U./dL)
[2018-07-12 14:18] LABS: URINE APPEARANCE CLEAR (CLEAR); URINE COLOR YELLOW (YELLOW)
[2018-07-12] MEDS ORDERED: [UNRECOGNIZED DRUG - OTHER] PO PRN (17:44)
--- NOTE | 2018-07-12 20:09 | CARD ---
APPROVED REPORT Date of service: 07/12/2018 EKG Measurement Heart [id number] <Conclusion> Atrial fibrillation Low voltage QRS Abnormal QRS-T angle, consider primary T wave abnormality Abnormal ECG
[2018-07-13] MEDS: NIFEdipine 90 mg ER Tab PO SCH (10:00)
[2018-07-13] MEDS ORDERED: Non Formulary Medication (Losartan/Hydrochlorothiazide [Losartan-Hctz 100-25 Mg Tab] 1 TAB PO SCH (10:00)
[2018-07-13] MEDS: Levothyroxine 25 MCG TAB PO SCH (10:01)
[2018-07-13] MEDS: Pantoprazole 40 mg EC Tab PO SCH (10:04)
--- NOTE | 2018-07-13 21:55 | PN ---
DATE: 07/13/2018 SUBJECTIVE: The patient is seen this Thursday morning in room 372, bed 1, admitted with altered mental status as he had been in the past with urinary tract infection and dehydration in the past. The patient remains in bed and a bit confused. He is happy to see me thankful that Dr. Bermeo and I are caring for him, but it is a bit confused as to events leading up to this hospitalization. I spoke to his [id number], Adriana, cell phone number [phone]. Earlier today, they are concerned about the patient coming home to care for his elderly as they live alone in acute family house. She raises the question of broken heart syndrome because of his passing of his son within the past month or so. We change the patient to inpatient status, request physical therapy, and transitional care evaluation. Hopefully, he will recover and become ambulatory such that he will be ready for discharged home and plans are in the works for him to move to his son's house in [place] if all goes well. Patrick Gunter MD
[2018-07-14] MEDS: Pantoprazole 40 mg EC Tab PO SCH (06:31)
[2018-07-14] MEDS: Levothyroxine 25 MCG TAB PO SCH (10:57)
[2018-07-14] MEDS: NIFEdipine 90 mg ER Tab PO SCH (10:57)
[2018-07-15] MEDS: Levothyroxine 25 MCG TAB PO SCH (10:36)
[2018-07-15] MEDS: NIFEdipine 90 mg ER Tab PO SCH (10:36)
[2018-07-15] MEDS: Pantoprazole 40 mg EC Tab PO SCH (10:39)
[2018-07-16 03:27] VITALS: RESP 20
[2018-07-16 06:54] LABS: BASO # 0.02 K/mm3 (0.0-2.0); BASO % 0.2 % (0.0-3.0); EOS # 0.2 (0.0-0.7); EOS % 1.4 % (1.5-5.0); HEMOGLOBIN 13.1 g/dL (14.0-18.0); LYMPH # 3.2 (1.2-3.4); MEAN CELL VOLUME 87.9 fl (80.0-105.0); MEAN CORPUSCULAR HEMOGLOBIN 29.2 pg (25.0-35.0); MEAN CORPUSCULAR HGB CONC 33.2 g/dl (31.0-37.0); MEAN PLATELET VOLUME 9.5 fl (7.0-11.0); MONO # 1.1 (0.1-0.6); MONO % 9.1 % (1.0-6.0); RBC 4.48 10^6/uL (3.5-6.1); RED CELL DISTRIBUTION WIDTH 14.1 % (11.5-14.5); WHITE BLOOD COUNT 12.1 10^3/uL (4.5-11.0)
[2018-07-16 07:03] LABS: INR 2.37; PROTHROMBIN TIME 26.8 SECONDS (9.4-12.5)
[2018-07-16 07:06] LABS: BLOOD UREA NITROGEN 26 mg/dL (7-21); CALCIUM 8.7 mg/dL (8.4-10.5); GFR NON-AFRICAN AMERICAN > 60
[2018-07-16 08:07] VITALS: BP 118/66; PULSE 66; TEMP 98.2; O2SAT 96
[2018-07-16] MEDS: Levothyroxine 25 MCG TAB PO SCH (09:22)
[2018-07-16] MEDS: NIFEdipine 90 mg ER Tab PO SCH (09:22)
[2018-07-16] MEDS: Pantoprazole 40 mg EC Tab PO SCH (09:35)
--- NOTE | 2018-07-16 10:48 | PN ---
DATE: 07/15/2018 SUBJECTIVE: The patient was seen this morning in room 372, bed 1. He is comfortable. Mental status is awake, and alert. He has been up and out of bed to chair. Will continue more of that through today and physical therapy. Unfortunately, he has been declined from the Transitional Care Unit because of his insurance choice. Later in the evening, I spoke with the patient's [id number] and then to his son's in [place]. I explained difficulty we are of having with transfer to our transitional care because of insurance reasons. I offered subacute rehab which they are not interested in, therefore the patient will be going home tomorrow. Initially, the plan was the patient's son and his to come up from [place] and bring his parents home to a place near them and they said obviously then they will need to advance these plans to this week as well as to the following week. Patrick Gunter MD
--- NOTE | 2018-07-17 15:03 | DS ---
HOSPITAL COURSE: Patient was seen this Thursday morning in transitional care, more awake, alert. After having conversation with his two [id number] yesterday, he is to be discharged to home today. This is an 83-year-old man with a history of rather sudden onset of weakness, at times confusion, disorientation, inability to ambulate, taken to the hospital again with the above described episodes. He had been seen in a house call on the day before admission and was apparently doing well. When the episode happened, he came to the emergency room and it was a matter of hours until next day when he became more clear. In the past, this were related to urinary tract infections. Patient was given IV fluids, monitored closely. Physical therapy came to see the patient. There was hope that he would to go to transitional care unit as he lives with his elderly and is cared for by his [id number] who is in the midst of a very difficult grief and bereavement reaction having lost her (the son of the patient) due to advanced gastric cancer. During the course of the hospital stay, patient did rather well, engaged in some activities of physical therapy. Unfortunately, his physical therapy request to go to the transitional care unit was denied because of his insurance not participating. I spoke with the patient's [id number] yesterday and explained the situation. They declined the opportunity for subacute rehab . Patient was discharged to home today. Patient's son in [place] will be coming up to care for him and bring him and his to their house and then to a facility near them. Patient was ready for discharge to home today, 07/16/2018. FINAL DISCHARGE DIAGNOSES: 1. Sudden onset of acute altered mental status. 2. Related in the past urinary tract infection and dehydration. 3. Clinical dehydration. Patrick Gunter MD MTDD
== END 2018-07-16 15:57 | disposition home or self-care (01) | DRG 641 ==
LOC: ED 08:26 → ERH 10:59 → 3RSO 14:03 → OBSVTOIN 07-13 18:30
PROVIDERS: ADMIT Internal Medicine; ATTEND Internal Medicine
DX: E86.0 Dehydration (principal); R41.82 Altered mental status, unspecified; M17.11 Unilateral primary osteoarthritis, right knee; I10 Essential (primary) hypertension; I25.10 Atherosclerotic heart disease of native coronary artery without angina pectoris; I48.91 Unspecified atrial fibrillation; Z96.641 Presence of right artificial hip joint; Z79.01 Long term (current) use of anticoagulants; Z95.1 Presence of aortocoronary bypass graft; Z80.0 Family history of malignant neoplasm of digestive organs; Z87.440 Personal history of urinary (tract) infections; Z86.73 Personal history of transient ischemic attack (TIA), and cerebral infarction without residual deficits; Z63.4 Disappearance and death of family member